=== PATIENT | female | born 1955 | race Caucasian/White ===

== ENCOUNTER 2016-05-14 16:01 | Emergency (ER) | payer BC ==
[2015-08-29 09:20] VITALS: BMI 17.4
[~2016-05-14 16:01] MED LIST: ASPIRIN EC81 M1 PO; CYMBALTA60 MG PO; FISH OIL 1,0001 CA1 PO; HYDROCODON-ACE1 EAC9 PO; HYDROCODONE-APA1 TAB PO; MULTI-DAY VITAM1 TAB PO; PLAVIX75 MG PO; REQUIP0.5 MG PO; ZOFRAN4 MG PO
[2016-05-14 18:00] LABS: BASOPHILS 0.1 % (0.0-2.0); EOSINOPHILS 0 % (0-7); HEMOGLOBIN 10.3 g/dL (12-16); IMMATURE GRANULOCYTES 0.3 % (0-5); LYMPHOCYTES 9.1 % (15-50); MCH 32.8 pg (26.0-34.0); MCHC 33.2 g/dL (31.0-37.0); MCV 98.7 fL (80.0-100.0); MEAN PLATELET VOLUME 10.4 fL (7.4-10.4); NEUTROPHILS 85.5 % (40-80); RBC 3.14 10x6/uL (4.00-5.40); RDW 12.5 % (11.5-14.5); WBC 17.9 10x3/uL (4.8-10.8)
[2016-05-14 18:22] LABS: ALBUMIN 3.7 g/dL (3.4-5.0); ANION GAP 13.1 mmol/L (8-16); BILIRUBIN - TOTAL 0.48 mg/dL (0.2-1.3); CALCIUM 8.9 mg/dL (8.5-10.1); CARBON DIOXIDE 28.6 mmol/L (21.0-32.0); POTASSIUM - SERUM 3.7 mmol/L (3.5-5.1); PROTEIN - SERUM 6.8 g/dL (6.4-8.2)
[2016-05-14 18:32] LABS: PLATELET COUNT 208 10x3/uL (130-400)
[2016-05-14 18:39] LABS: INR 1.06 (0.85-1.17); PROTIME 13.6 SECONDS (11.6-15.0)
== END 2016-05-14 20:00 | disposition home or self-care (01) ==
LOC: D.ER 16:01
PROVIDERS: Nurse Practitioner Family
DX: S22.32XA Fracture of one rib, left side, initial encounter for closed fracture (principal); W19.XXXA Unspecified fall, initial encounter; Y93.89 Activity, other specified; Y92.019 Unspecified place in single-family (private) house as the place of occurrence of the external cause; M79.7 Fibromyalgia

== ENCOUNTER 2016-05-18 03:07 | Inpatient (IN) | payer BC ==
[~2016-05-18] VITALS: Ht 162.6 cm; Wt 47.6 kg
[2016-05-18 03:50] LABS: BASOPHILS 0.1 % (0.0-2.0); EOSINOPHILS 0.4 % (0-7); IMMATURE GRANULOCYTES 0.2 % (0-5); LYMPHOCYTES 9.6 % (15-50); MCH 33.1 pg (26.0-34.0); MCHC 32.6 g/dL (31.0-37.0); MCV 101.7 fL (80.0-100.0); MONOCYTES 6.6 % (2-11); NEUTROPHILS 83.1 % (40-80); PLATELET COUNT 188 10x3/uL (130-400); WBC 13.4 10x3/uL (4.8-10.8)
[2016-05-18 03:59] LABS: APTT 20.9 SECONDS (22.8-39.4); INR 1.02 (0.85-1.17); PROTIME 13.2 SECONDS (11.6-15.0)
[2016-05-18 04:05] LABS: ALBUMIN 3.1 g/dL (3.4-5.0); ALKALINE PHOSPHATASE 70 U/L (46-116); ALT (SGPT) 16 U/L (10-68); AMYLASE - SERUM 32 U/L (25-115); CALC OSMOLALITY 286 mosm/kg (275-300); CALCIUM 8.4 mg/dL (8.5-10.1); CHLORIDE - SERUM 107 mmol/L (98-107); CREATININE - SERUM 0.8 mg/dL (0.6-1.3); GLUCOSE 169 mg/dL (74-106); LIPASE 91 U/L (73-393); PROTEIN - SERUM 6.3 g/dL (6.4-8.2); SODIUM 143 mmol/L (136-145); UREA NITROGEN 8 mg/dL (7-18); eGFR NON AFRICAN AMERICAN 77 mL/min (90-120)
[2016-05-18 04:19] LABS: HEMATOCRIT 18.4 % (36.0-48.0); RBC 1.81 10x6/uL (4.00-5.40)
--- NOTE | 2016-05-18 07:53 | NUR ---
RECEIVED PATIENT TO HER ROOM. INITIATED THE THIRD UNIT OF PRBC INFUSION. SHE IS ALERT AND ORIENTED, ABLE TO GIVE HER HISTORY. SHE STATES THAT SHE HAS BEEN "PASSING OUT" AND REPORTS ORTHOSTATIC BLOOD PRESSURES LAST WEDNESDAY IN THE ER. SHE DOES HAVE AN OCCASIONAL COUGH AND REPORTS RIB PAIN AT THST TIME. SHE ALSO REPORTS THAT HER ABDOMEN FEELS BLOATED AND SUSPECTS THAT THIS MAY BE FROM HER INJURY TO THE SPLEEN. SHE UNDERSTANDS THAT SHE IS NPO AND KNOWS HOW TO USE THE CALL LIGHT. HER PURSE IS AT HER SIDE. SHE DENIES NEEDS AT THIS TIME. MONITORING CLOSELY
--- NOTE | 2016-05-18 08:05 | NUR ---
PATIENT REMAINS WITHOUT EVIDENCE OF ADVERSE REACTION R/T THE PRBC INFUSION. MONITORING CLOSELY.
[2016-05-18 10:01] VITALS: BP 132/70; BMI 18.0
--- NOTE | 2016-05-18 10:19 | NUR ---
PATIENT RESTING IN HER BED, HOB UP 30 DEGREES. SHE STATES THAT HER LEFT RIB PAIN IS AN 8 ON THE PAIN SCALE. SHE HAS BEEN GIVEN A NORCO. REVIEWED HER ALLERGIES AND ASSESSMENT COMPLETED. HER LUNGS ARE CLEAR WITH THE RIGHT LL DIMINISHED. RRR. BOWEL SOUNDS ARE ACTIVE. ABDOMEN IS FIRM AND NONTENDER. HER LEGS ARE EQUALLY WARM, PEDAL PULSES ARE PALPABLE.
[2016-05-18 10:41] LABS: HEMATOCRIT 27.7 % (36.0-48.0); HEMOGLOBIN 9.4 g/dL (12-16)
--- NOTE | 2016-05-18 10:47 | NUR ---
PATIENT'S LEFT AC SL FLUSHED, REMOVED BLOOD TUBING AND HUNG NS TO INFUSE AT 125CC PER HOUR. PATIENT STATES THAT HER PAIN IS MUCH BETTER NOW AND REQUESTS THAT I COMMERCIAL SALES CONSULTANT THE LIGHT AND CLOSE HER DOOR, SHE WANTS TO SLEEP NOW. SHE HAS BEEN AWAKE SINCE FALLING ONTO THE FLOOR AT 2AM.
[2016-05-18] MEDS ORDERED: PROZAC10 MG PO (10:55)
[2016-05-18] MEDS ORDERED: REMERON15 MG PO (10:55)
[2016-05-18 12:32] VITALS: BP 114/61
[2016-05-18 13:27] VITALS: Ht 162.6 cm; Wt 47.6 kg
[2016-05-18 14:05] LABS: HEMATOCRIT 27.5 % (36.0-48.0); HEMOGLOBIN 9.4 g/dL (12-16)
[2016-05-18 16:08] VITALS: BP 115/62
[2016-05-18 16:08] LABS: HEMATOCRIT 27.6 % (36.0-48.0); HEMOGLOBIN 9.3 g/dL (12-16)
[2016-05-18 19:00] VITALS: BP 144/69
--- NOTE | 2016-05-18 19:07 | NUR ---
PATIENT HAS BEEN UP AMBULATING AROUND HER ROOM. DAUGHTER AT THE [facility]. DENIES NEEDS AT THIS TIME.
--- NOTE | 2016-05-18 19:20 | NUR ---
RECIEVED SHIFT REPORT. PT IS LYING IN BED. ALERT AND ORIENTED AND ABLE TO VERBALIZE NEEDS. IV'S TO BILATERAL A/C'S PATENT AND SALINE LOC AT THIS TIME. PT IS AMBULATORY BUT WAS INSTRUCTED TO CALL FOR ANY ASSISTANCE NEEDED. PT STATES PAIN IS 8/10. NO NEEDS ARE VERBALIZED AT THIS TIME. WILL CONTINUE TO MONITOR. SIDE RAILS ARE UP X 2. BED IS IN LOWEST POSITION. CALL LIGHT IS WITHIN REACH.
--- NOTE | 2016-05-18 20:19 | NUR ---
SHIFT ASSESSMENT COMPLETED. NIGHT MEDS GIVEN WITH NO PROBLEMS. PT C/O PAIN 11/19. ADMINISTERED PRESCRIBED PRN NORCO PER ORDER. DENIES FURTHER NEEDS. WILL MONITOR. SIDE RAILS X 2. BED LOW. CALL LIGHT IN REACH.
[2016-05-19 04:57] LABS: BASOPHILS 0.1 % (0.0-2.0); EOSINOPHILS 3.2 % (0-7); HEMATOCRIT 26.8 % (36.0-48.0); HEMOGLOBIN 9.1 g/dL (12-16); IMMATURE GRANULOCYTES 0.1 % (0-5); LYMPHOCYTES 25.7 % (15-50); MCH 30.8 pg (26.0-34.0); MEAN PLATELET VOLUME 9.8 fL (7.4-10.4); MONOCYTES 10.2 % (2-11); NEUTROPHILS 60.7 % (40-80); RDW 17.8 % (11.5-14.5)
[2016-05-19 04:58] LABS: MCV 90.8 fL (80.0-100.0); PLATELET COUNT 123 10x3/uL (130-400); RBC 2.95 10x6/uL (4.00-5.40)
--- NOTE | 2016-05-19 08:04 | NUR ---
PATIENT AWAKE, ALERT/ORIENT X4. LAC IS SALINE LOCKED. RAC IS SALINE LOCKED. VOICES NO NEEDS AT THIS TIME. CALL LIGHT WITHIN REACH
[2016-05-19 08:33] VITALS: BP 156/84
--- NOTE | 2016-05-19 10:41 | NUR ---
PATIENT RESTING WELL. STATES NO FURTHER PAIN SINCE PRN NORCO GIVEN.
--- NOTE | 2016-05-19 11:30 | NUR ---
AWAKE AND ALERT AT THIS TIME. IV PATENT AND SALINE LOCKED. PROVIDED PT WITH COLA, CUP OF ICE, AND SUMAN CRACKERS.
[2016-05-19 12:30] VITALS: BP 155/66
--- NOTE | 2016-05-19 13:30 | NUR ---
PRN NORCO GIVEN FOR PAIN ON LEFT SIDE OF HER TORSO.
--- NOTE | 2016-05-19 14:05 | NUR ---
DISCHARGE ORDERS WRITTEN FOR THIS PATIENT TO BE DISCHARGED TO HOME. SALINE LOCK PULLED FROM LEFT AC RIGHT AC WITHOUT DIFFICULTY.
[2016-05-19 16:01] VITALS: BP 131/68
--- NOTE | 2016-05-19 16:16 | NUR ---
DISCHARGE INSTRUCTIONS GONE OVER WITH PATIENT. MEDICATIONS PATIENT DOES NOT HAVE AT HOME CALLED INTO PHARMACY. PATIENT STATES HER DAUGHTER WILL PICK HER UP AFTER WORK AT AROUND FIVE OCLOCK
--- NOTE | 2016-05-19 17:59 | NUR ---
DAUGHTER HERE TO TAKE PATIENT HOME. PATIENT TAKEN OUT IN WHEELCHAIR BY STAFF
--- NOTE | 2016-06-11 13:01 | DS ---
PATIENT:MICHAEL SINGH :57 MEDICAL RECORD: [id number] DISCHARGE SUMMARY ADMISSION DATE: 05/18/16 DISCHARGE DATE: 05/19/16 DATE OF ADMISSION: 05/18/2016 DATE OF DISCHARGE: 05/19/2016 ADMISSION DIAGNOSES: 1. Acute splenic injury. 2. Acute blood loss anemia. 3. Peripheral vascular disease, on chronic Plavix. DISCHARGE DIAGNOSES: 1. Acute splenic injury. 2. Acute blood loss anemia. 3. Peripheral vascular disease, on chronic Plavix. PROCEDURE: None. CONSULTATIONS: None. REPORT OF HOSPITALIZATION: The patient was admitted to the hospital with a finding of acute blood loss anemia and on the CT scan, there was evidence of a large splenic laceration. Initial hemoglobin on admission was 6. The patient was given 3 units of blood and her blood counts came up appropriately to 9.4. The patient states she fell on her left side 4 days prior to admission while she was walking her dog. She said she fell onto a trees limb. She was doing fine until she passed out the night prior to admission with that time, was taken to the Emergency Room. She was admitted to the hospital and her Plavix was held and she was followed with serial H&Hs. She showed no sign of active bleeding and the following morning, she was set up for discharge home. DISCHARGE INSTRUCTIONS: Return to clinic or call if any questions or concerns, fevers, chills, nausea or vomiting. ACTIVITIES: As tolerated. FOLLOWUP: In clinic with me p.r.n. DISCHARGE MEDICATIONS: Resume all home medications. TRANSINT:[id number] Voice Confirmation ID: [id number] DOCUMENT ID: [id number] KATHY IVERSON MD at 1301 CC: [id number] DICTATION DATE: 06/09/16 1420 PAYROLL OFFICER: 06/10/16 0419 DIS IN 05/19/16 [place] [address]
== END 2016-05-19 17:59 | disposition home or self-care (01) | DRG 815 ==
LOC: D.ER 03:07 → D.MS 06:11
PROVIDERS: Emergency Medicine; ADMIT Surgery
DX: S36.032A Major laceration of spleen, initial encounter (principal); D62 Acute posthemorrhagic anemia; W18.39XA Other fall on same level, initial encounter; I73.9 Peripheral vascular disease, unspecified; F17.200 Nicotine dependence, unspecified, uncomplicated

== ENCOUNTER → 2017-03-17 14:48 | Outpatient (CLI) | payer MEDICAID ==
[2016-05-18 13:27] VITALS: BMI 18.0
[~2017-03-17 14:48] MED LIST changes: +PROZAC10 MG PO; +REMERON15 MG PO
== END | disposition home or self-care (01) ==
LOC: D.RAD 14:48
DX: M25.561 Pain in right knee (principal)

== ENCOUNTER → 2017-04-08 11:15 | Outpatient (CLI) | payer MEDICAID ==
[2016-05-18 13:27] VITALS: BMI 18.0
== END | disposition home or self-care (01) ==
LOC: D.RAD 11:15
DX: M25.571 Pain in right ankle and joints of right foot (principal); M79.604 Pain in right leg

== ENCOUNTER → 2017-08-12 10:40 | Outpatient (CLI) | payer MEDICAID ==
[2016-05-18 13:27] VITALS: BMI 18.0
== END | disposition home or self-care (01) ==
LOC: D.MRI 08-09 11:00
DX: M79.671 Pain in right foot (principal); I10 Essential (primary) hypertension

== ENCOUNTER 2017-10-30 15:19 | Emergency (ER) | payer MEDICAID ==
[~2017-10-30] VITALS: Ht 162.6 cm; Wt 52.3 kg
[2017-10-30 15:44] VITALS: Ht 162.6 cm; Wt 52.3 kg
[2017-10-30] MEDS ORDERED: LISINOPRIL10 MG PO (15:46)
[2017-10-30] MEDS ORDERED: ZPAK PO (16:45)
[2017-10-30] MEDS ORDERED: MEDROL DOSE PACK4 MG PO (16:45)
[2017-10-30 18:05] VITALS: BP 179/95
== END 2017-10-30 17:59 | disposition home or self-care (01) ==
LOC: D.ER 15:19
DX: H66.91 Otitis media, unspecified, right ear (principal); H92.01 Otalgia, right ear; R51 Headache; I10 Essential (primary) hypertension; F17.200 Nicotine dependence, unspecified, uncomplicated

== ENCOUNTER 2018-01-14 10:52 | Inpatient (IN) | payer MEDICAID ==
[~2018-01-14] VITALS: Ht 162.6 cm; Wt 56.8 kg
--- NOTE | ~2018-01-14 | OP ---
PATIENT NAME: MICHAEL SINGH MEDICAL RECORD: [id number] :57 LOCATION:D.M2 D.2130 ADMISSION DATE:01/14/18 SURGEON: VERONA SINGLETARY MD DATE OF OPERATION: 01/16/2018 PROCEDURES: Left heart catheterization, selective coronary angiography, right femoral artery approach. CATHETERS: A 5-Italian sheath, 5/4 left and right Marly, 5/4 pig. The procedure was well tolerated. The patient returned to the [place]. Sheath was removed. PTCA and stent of the diagonal. FINDINGS: Left ventriculography mild anterior apical hypokinesis. Overall LV function, however, is preserved at 50% and better. CORONARY ANATOMY: LEFT MAIN: Left main is free of disease. LAD: Had as a parallel diagonal, D1 itself is much larger than the LAD with 89% ostial diffuse stenosis. CIRCUMFLEX: Free disease. RIGHT CORONARY ARTERY: Dominant artery, gives rise to PDA, free of disease. IMPRESSION: Pry-FC-axfjyhxmi myocardial infarction secondary to diagonal disease. PLAN: Intervention momentarily. DESCRIPTION OF PROCEDURE: A 5-Italian sheath was exchanged for a 6-Italian sheath. EBU 3.0 guiding catheter provided good catheter support, followed 300 cm Whisper wire was placed across occluded diagonal pre-deployment. Balloon was a 2.5 x 15 mm [place]. The stenting was undertaken with a 3.0 x 15 mm [place] drug-eluting stent at 14 atmospheres. Final angiography shows excellent resolution with 89% stenosis, no significant residual. MARISSA flow was 3 throughout the procedure. Heparin used in lab. Sheath closed with ExoSeal device. The patient was previously on Plavix. TRANSINT:[id number] Voice Confirmation ID: [id number] DOCUMENT ID: [id number] VERONA SINGLETARY MD at 0829 CC: [id number] DICTATION DATE: 01/16/18 0938 FIREFIGHTER TYPE ONE: 01/16/18 1218 DIS IN 01/16/[address] [id number]
--- NOTE | ~2018-01-14 | HP ---
PATIENT: MICHAEL SINGH MEDICAL RECORD: [id number] ACCOUNT: [id number] LOCATION:[address] : 57 ADMISSION DATE: 01/14/18 PCP: JOSEFINA BONE DO HISTORY AND PHYSICAL EXAMINATION HISTORY OF PRESENT ILLNESS: The patient admitted through the Emergency Room with 2 days of progressive shortness of breath, syncopal or near syncopal episode prior to arrival. Admits to chest pressure. Denies pain. Has had upper respiratory symptoms for the past several weeks. Denies any fever or chills for the last 2 days. PAST MEDICAL HISTORY: Significant for peripheral vascular disease with stents to the lower extremity, history of aortic aneurysm and repair, long-term smoker - presently pack a day, history of depression, allergies, and restless leg. ALLERGIES: SULFA DRUGS, ASPIRIN, CODEINE. CURRENT MEDICATIONS: Plavix 75 mg daily, lisinopril 10 mg daily, Prozac 10 mg daily, fish oil, [place] p.r.n. pain, ropinirole 2 mg p.o. at bedtime, and multivitamin. REVIEW OF SYSTEMS: GENERAL: No reported change in weight or appetite. HEENT: No cephalalgia, visual changes, tinnitus, epistaxis, or dysphagia. CARDIOVASCULAR: Shortness of breath, chest pressure, fatigue for the past 2 days, progressively worse with unclear syncopal or near syncopal episode just prior to arrival. PULMONARY: Denies hemoptysis, denies night sweats. Admits to shortness of breath with exertion. GASTROINTESTINAL: Denies hematemesis, hematochezia or melena. GENITOURINARY: Denies dysuria. Does admit to frequency. MUSCULOSKELETAL: No acute changes. ENDOCRINE: Denies polyuria, polydipsia, or polyphagia. PHYSICAL EXAMINATION: VITAL SIGNS: Temp 98.4, blood pressure 104/61, heart rate 94, respirations 16, O2 sats 96% on room air. GENERAL: Alert and oriented, no present distress. HEENT: Normocephalic, atraumatic. Eyes: Pupils are equally round and reactive to light and accommodation. Extraocular muscles intact. Conjunctivae not injected. Ears: Canals patent, TMs are intact. Nose: Nares patent without drainage. Throat: No erythema, no exudates. NECK: Supple. No lymphadenopathy, no JVD. HEART: Regular rate and rhythm. No S3, S4, no rub. LUNGS: Clear to auscultation bilaterally. Breathing is nonlabored. ABDOMEN: Soft, nontender. Bowel sounds all 4 quadrants. EXTREMITIES: Present times 4. No edema. NEUROLOGIC: Intact. SKIN: Warm and dry. No rash. LABORATORY DATA: Urinalysis: Yellow, hazy, trace protein, 1+ blood, moderate bacteria. CBC: White count 8.5, hemoglobin 14, hematocrit 40.5, platelets 246. HISTORY AND PHYSICAL [id number] MICHAEL SINGH PT is 12.9, INR is 1.01. D-dimer was elevated at 0.77. CTA chest PE protocol was negative for any acute process. Negative for PE. Chemistry shows sodium of 136, potassium 2.7 and corrected in the ER, chloride 98, bicarbonate 20.8, BUN 8, creatinine 1.3. Lactic acid was elevated at 7.0, calcium 9.1, AST 33, ALT 28, alkaline phosphatase 105. CK 101. CK-MB elevated at 6.8. Troponin 0.063. ProBNP 4501. EKG shows sinus rhythm, nonspecific ST changes, prolonged QT, ventricular rate 90, abnormal EKG. ASSESSMENT AND PLAN: The patient was admitted with: 1. Dyspnea on exertion, abnormal EKG, angina, elevated cardiac enzymes. Cardiology consulted. 2. Hypokalemia, monitor, electrolyte protocol. Supplement as needed. 3. Urinary tract infection, Rocephin 1 gram daily. 4. Anxiety and depression, resume home medications. 5. Peripheral vascular disease, continue Plavix. Supportive care. Cardiac catheterization anticipated in a.m. TRANSINT:[id number] Voice Confirmation ID: [id number] DOCUMENT ID: [id number] HELEN ROLLINS DO at 1030 CC: [id number] DICTATION DATE: 01/15/181116 COUPON CLERK: 01/15/[id number] ADM IN [facility] [address] [place] [address]
--- NOTE | ~2018-01-14 | CN ---
PATIENT NAME:MICHAEL SINGH MEDICAL RECORD: [id number] : 57 LOCATION:D.M2 D.2130 ADMIT DATE: 01/14/18 ACCOUNT: [id number] CONSULTING PHYSICIAN: VERONA SINGLETARY MD REFERRING PHYSICIAN: HELEN ROLLINS DO DATE OF CONSULTATION: 01/15/2018 HISTORY OF PRESENT ILLNESS: A 62-year-old female with a history of peripheral vascular disease, status post intervention via Dr. Hoyt. She has a history of chronic obstructive pulmonary disease with ongoing tobacco use, admitted with a near syncopal episode, was found to be acidotic, with elevated lactic acid, that is improving, also has a history of upper respiratory tract infection 2 weeks ago as well as current UTI, found to have elevated BNP and troponin, has noticed marked dyspnea as of late but no kemi orthopnea, PND. Does try to walk, trying to walk her dogs. We were asked to see her secondary to cardiovascular status. PAST MEDICAL HISTORY: 1. History of peripheral vascular disease. 2. Obstructive pulmonary disease. 3. Hypertension. ALLERGIES: SULFA, CODEINE, AND ASPIRIN. MEDICATIONS: Include Plavix 75 every day, lisinopril 10 every day, Prozac 10 every day, Remeron 15 at bedtime, Requip 2 at bedtime. SOCIAL HISTORY: Smokes about a pack a day. Usually takes care of all her ADLs. Does walk her dogs. REVIEW OF SYSTEMS: The patient reports easy bruising but reports no swollen glands. The patient reports no fever, no night sweats, no significant weight gain, no significant weight loss. No significant exercise tolerance. The patient reports no dry eyes, no irritation, no vision change. Patient reports no difficulty hearing and no ear pain. Patient reports no frequent nose bleeds or nose and sinus problems. Patient reports on arm pain on exertion. No shortness of breath while lying down. No history of heart murmur. Patient reports no cough, no wheezing or coughing up blood. Patient reports no abdominal pain, no vomiting. Normal appetite. No diarrhea and not vomiting blood. No nausea and no constipation. Patient reports no incontinence. No difficulty urinating. No hematuria. No increased frequency. Patient reports no muscle aches. No weakness, no arthralgias, no back pain. No swelling of the extremities. Patient reports no abnormal mole, no jaundice, no rashes. Reports no loss of consciousness. No weakness and no numbness. No seizures, dizziness, or headaches. The patient reports no depression, no sleep disturbance, feeling safe in a relationship and no alcohol abuse. Patient reports on fatigue. Reports no runny nose or sinus pressure. No itching, no hives, and no frequent sneezing. PHYSICAL EXAMINATION: GENERAL: Pleasant female, appears stated age. VITAL SIGNS: Blood pressure 104/61, pulse 94 and regular. HEENT: Normocephalic, atraumatic. NECK: No JVD or bruit. HEART: Regular, I-II/ ejection murmur. LUNGS: Prolonged respiratory phase with no active wheezing. CONSULT REPORT [id number] FRANCISCOMICHAEL ABDOMEN: Soft, nontender. EXTREMITIES: Pulses are decreased, 1+. There is no edema. NEUROLOGIC: Grossly intact. DIAGNOSTIC DATA: ECG shows anterior T-wave inversion. IMPRESSION: ECG changes, elevated cardiac enzymes in the face of recent infection and lactic acidosis, difficult to assess if this is a true demand type ischemia or fixed obstructive disease. PLAN: We will plan for diagnostic angiography after hydration and improvement of the electrolytes today TRANSINT:[id number] Voice Confirmation ID: [id number] DOCUMENT ID: [id number] VERONA SINGLETARY MD at 1023 CC: [id number] DICTATION DATE: 01/15/18 1027 COMMUNICATION EQUIPMENT MECHANIC: 01/15/18 1305 ADM IN [place] [id number] [place] [address]
--- NOTE | ~2018-01-14 | EC ---
PATIENT:MICHAEL SINGH DATE OF SERVICE: 01/14/18 SEX: F MEDICAL RECORD: [id number] DATE OF : 57 LOCATION:D.M2 D.213 AGE OF PATIENT: 62 ADMISSION DATE: 01/14/18 REFERRING PHYSICIAN: INTERPRETING PHYSICIAN: VERONA SINGLETARY MD ECHOCARDIOGRAM REPORT ECHO CHARGES 4 ECHO COMPLETE Date: 01/15/18 CLINICAL DIAGNOSIS: ACS ECHOCARDIOGRAPHIC MEASUREMENTS (adult normal given) AC root (d.<3.7cm) 3.0 cm LV Septum d (<1.2 cm> 1.3 cm Valve Excursion 1.8 cm LV Septum (systole) 1.9 cm Left Atria (s.<4.0cm> 3.0 cm LVPW d(<1.2cm) 1.2 cm RV (d.<2.3cm) 1.8 cm LVPW (sytole) 1.9 cm LV diastole(<5.6CM) 3.9 cm MV E-F(>70mm/sec) cm LV systole 2.2 cm LVOT Diameter 1.8 cm MV exc.(>10mm) cm Est.ejection fraction (50-75%) % DOPPLER: LVIT cm/sec A 70.0 cm/sec E 91.0 cm/sec LA cm/sec RVSP 34.0 mmHg LVOT 111 cm/sec AOP1/2T m/s Asc. Ao 152 cm/sec RVOT 85.0 cm/sec RA cm/sec PA 75.0 cm/sec AV Gradient Peak 9.2 mmHg AV Mean 4.9 mmHg AV Area 2.1 cm MV Gradient Peak 3.6 mmHg MV Mean 1.5 mmHg MV Area cm COMMENTS: Brine Well Operator: 1 ISIDRO YANCEYOE Ethyl Blender: 3 Dr. Calzada TAPE# PACS Pericardial Effusion N DATE OF SERVICE: Adequate 2D, color flow, spectral Doppler and M-mode. LVH is present. LV internal dimension is normal. Wall motion normal. EF 65%. Aortic valve is tricuspid. No evidence of stenosis on Doppler interrogation. Left atrium is normal at 3.0 cm. Mitral valve shows no prolapse. Mild MR. Right-sided chambers normal. [id number] TR with color flow imaging. TRANSINT:[id number] Voice Confirmation ID: [id number] DOCUMENT ID: [id number] ECHOCARDIOGRAM REPORT [id number] MICHAEL SINGH GREGORY A MD at 1023 CC: [id number] DICTATION DATE: 01/15/18 1644 POLITICAL SCIENCE PROFESSOR: 01/16/18 0043 ADM IN [facility] [address] [place] [id number]
--- NOTE | ~2018-01-14 | HEMODYNAMI ---
PATIENT:MICHAEL SINGH MEDICAL RECORD: [id number] : 57 [facility] ADMISSION DATE: 01/14/18 Generatedon:01/16/20189:34 Patient name: MICHAEL SINGH Patient #: [id number] SSN: : 1955 Date of study: 01/16/2018 Page: Of Hemodynamic Procedure Report Patient Data Patient Demographics Procedure consent was obtained First Name: MICHAEL Gender: Female Last Name: FRANCISCO : 1955 Middle Initial: LUISANA Age: 62 year(s) Patient #: [id number] Race: Unknown Additional ID: [id number] Contact details [address]: [address] [place] [address] State: [place] City: [place] Zip code: [address] Admission Admission Data Admission Date: 01/14/2018 Admission Time: 17:57 Room #: D.2130 Procedure Procedure Types Cath Procedure Diagnostic Procedure LHC LHC w/Coronaries Sedation Charges Moderate Sedation up to 15 minutes PCI Procedure Coronary Stent Coronary Stent Initial Procedure Description Procedure Date Procedure Date: 01/16/2018 Procedure Start Time: 9:14 Procedure End Time: 9:32 Procedure Staff Name Function Liam Merrill MD Performing Physician Aurora Israel RT Monitor Mami Holley RN Nurse Alyssa Hemphill RN Nurse Dorian Long RT Scrub Procedure Data Cath Procedure Fluoroscopy Diagnostic fluoroscopy Total fluoroscopy Time: 3.7 time: 3.7 min min Diagnostic fluoroscopy Total fluoroscopy dose: 297 dose: 297 mGy mGy Contrast Material Contrast Material Type Amount (ml) Isovue 300 92 Entry Location Entry Primary Successful Side Size Upsize Upsize Entry Closure Succes sful Closure Location (Fr) 1 (Fr) 2 (Fr) Remarks Device Remarks Femoral Right 5 Fr 6 Fr Exoseal artery Short Estimated blood loss: 5 ml Diagnostic catheters Device Type Used For End Catheter Placement MULTIPACK JL 4.0 5Fr Left Coronary catheter Angiography MULTIPACK 3DRC 5Fr Right Coronary catheter Angiography MULTIPACK Pigtail 5 Fr LV Angiography catheter Procedure Complications No complications Procedure Medications Medication Administration Route Dosage 0.9% NaCl I.V. 100 ml/hr Oxygen etCO2 Nasal cannula 2 l/min Lidocaine 2% added to field 20 Heparin Flush Bag added to field 2 bags (1000units/500ml NS) Versed I.V. 2 mg Fentanyl I.V. 100 mcg Versed I.V. 2 mg Fentanyl I.V. 100 mcg Heparin Bolus I.V. 4000 units Lopressor I.V. 5 mg Hemodynamics Rest Heart Rate: 100 (bpm) Pressure Samples Time Site Value (mmHg) Purpose Heart Use Rate(bpm) 9:19 LV 125/4,13 Snapshot 102 Gradients Valve Time Site Site Mean SEP/DFP Peak To Heart Use 1 2 (mmHg) (sec/min) Peak Rate (mmHg) (bpm) Aortic 9:19 LV AO 93 Snapshots Pre Cath Intra NCS Post Cath Vital Signs Time Heart Resp SPO2 etCO2 NIBP (mmHg) Rhythm Pain Sedation Rate (ipm) (%) (mmHg) Status Level (bpm) 8:54:13 99 11 100 30 151/98(126) NSR 0 (11) 10(A) , No pain 8:58:29 94 22 100 22.5 141/86(116) NSR 0 (11) 10(A) , No pain 9:02:37 94 20 97 33 118/74(93) NSR 0 (11) 10(A) , No pain 9:06:45 94 14 97 36.8 117/72(95) NSR 0 (11) 10(A) , No pain 9:10:53 92 18 97 37.6 118/72(91) NSR 0 (11) 10(A) , No pain 9:15:03 92 13 96 41.3 115/69(92) NSR 0 (11) 10(A) , No pain 9:19:54 108 19 96 29.3 162/101(119) NSR 0 (11) 10(A) , No pain 9:22:54 104 16 97 38.3 161/101(125) NSR 0 (11) 10(A) , No pain 9:28:07 89 13 98 34.5 134/77(98) NSR 0 (11) 10(A) , No pain 9:32:17 87 17 96 23.3 125/109(121) NSR 0 (11) 10(A) , No pain Medications Time Medication Route Dose Verified Delivered Reason Notes Effectiveness by by 8:49:51 0.9% NaCl I.V. 100 Liam Alyssa used for ml/hr [facility] procedure MD SUAREZ 8:50:01 Oxygen etCO2 2 Liam Alyssa used for Nasal l/min [facility] cannula MD SUAREZ 8:50:08 Lidocaine 2% added 20ml Liam Wheeler used for to vial [facility] procedure field MD LUJAN 8:50:15 Heparin Flush added 2 Liam Liam used for Bag to bags [facility] procedure (1000units/500ml field MD LUJAN NS) 9:15:15 Versed I.V. 2 mg Liam Alyssa for sedation [facility] Hemph[facility] MD, RN 9:15:22 Fentanyl I.V. 100 Liam Alyssa for sedation mcg [facility] Hemph[facility] MD, RN 9:20:54 Versed I.V. 2 mg Liam Aylssa for sedation [facility] Hemph[facility] MD, RN 9:21:00 Fentanyl I.V. 100 Liam Alyssa for sedation mcg [facility] Hemph[facility] MD RN 9:21:10 Heparin Bolus I.V. 4000 Liam Alyssa for units [facility] Hem[facility] anticoagulation RN 9:23:25 Lopressor I.V. 5 mg Liam Alyssa Per physician [facility] MD director database Log Time Note 8:30:28 Dorian Long RT(R) sent for patient. Start room use. 8:36:30 Time tracking: Regular hours (M-F 7:00 - 5:00) 8:36:34 Plan of Care:Hemodynamics will remain stable., Cardiac rhythm will remain stable., Comfort level will be maintained., Respiratory function will remain adequate., Patient/ family verbilizes understanding of procedure., Procedure tolerated without complication., Recovers from procedure without complications.. 8:49:51 0.9% NaCl 100 ml/hr I.V. was administered by Alyssa Hemphill RN; used for procedure; 8:50:01 Oxygen 2 l/min etCO2 Nasal cannula was administered by Alyssa Hemphill RN; used for procedure; 8:50:08 Lidocaine 2% 20ml vial added to field was administered by Liam Merrill MD; used for procedure; 8:50:15 Heparin Flush Bag (1000units/500ml FIDELIA) 2 bags added to field was administered by Liam Merrill MD; used for procedure; 8:53:13 Vital chart was started 8:55:54 Patient received from Med II to CCL 1 Alert and oriented. Tansferred to table in Supine position. 8:55:56 Warm blankets applied, and sagar hugger turned on for patient comfort. 8:55:56 Correct patient and procedure confirmed by team. 8:55:58 Signed procedure consent form obtained from patient. 8:55:59 ECG and BP/O2 sat monitors applied to patient. 8:56:04 Baseline sample Acquired. 8:56:11 Rhythm: sinus tachycardia 8:56:13 Full Disclosure recording started 8:56:17 H&P Date Dictated: 01/16/2018 New H&P dictated by physician.. 8:56:23 Pre-procedure instructions explained to patient. 8:56:24 Pre-op teaching completed and patient verbalized understanding. 8:56:31 Family in waiting room. 8:56:32 Patient NPO since Midnight. 8:56:41 Is the patient allergic to Iodine/contrast media? No. 8:56:43 Was the patient premedicated? No 8:56:45 Is patient on blood thinner?Yes 8:56:49 ACC The patient was administered the following blood thiners within the last 24 hours: ACCPlavix 8:56:59 Patient diabetic? No. 8:57:02 Previous problem with sedation/anesthesia? No ? 8:57:18 Snore? Yes 8:57:20 Sleep apnea? No 8:57:21 Deviated septum? No 8:57:22 Opens mouth fully? Yes 8:57:23 Sticks out tongue? Yes 8:57:27 Airway obstruction? No ? 8:57:33 Dentures? Yes in tight 8:57:55 Pre procedure: right dorsailis pedis pulse 1+ Palpable, but thready & weak; easily obliterated 8:57:57 Pre procedure: left dorsailis pedis pulse 1+ Palpable, but thready & weak; easily obliterated 8:58:01 Patient pain scale 0/10 ?. 8:58:09 IV patent on arrival in left forearm with 0.9% NaCl at KVO. 8:58:12 Lab results completed and on chart. 9:01:06 Right groin area was prepped with chlora-prep and draped in sterile fashion 9:01:07 Alarms reviewed by RYann N. 9::07 Sharps counted by scrub and verified by R.N. 9:07:59 Physician paged 9:14:29 Physician arrived 9:14:30 --------ALL STOP TIME OUT------ 9:14:30 Final Timeout: patient, procedure, and site verified with staff and physician. All members of the team are in agreement. 9:14:32 Right groin site verified by team. 9:14:34 Physical assessment completed. ASA score P 2 - A patient with mild systemic disease as per Liam Merrill MD. 9:14:38 Sedation plan: IV Moderate Sedation Medication:Versed, Fentanyl 9:14:43 Procedure started. 9:14:46 Local anesthetic to right femoral artery with Lidocaine 2% by Liam Merrill MD.INITIAL ACCESS ONLY 9:14:49 Use device set Femoral Dx 9:14:50 ACIST Syringe (30148) opened to sterile field. 9:14:50 Bag Decanter (2002S) opened to sterile field. 9:14:50 Medline Cath Pack ([id number]) opened to sterile field. 9:14:51 DIAGNOSTIC WIRE .035 260cm J wire (770088) opened to sterile field. 9:14:52 ACIST Hand Control (25698) opened to sterile field. 9:14:53 ACIST Manifold (00740) opened to sterile field. 9:14:53 DIAGNOSTIC Multipack 5Fr catheter set ([id number]) opened to sterile field. 9:14:54 Tegaderm 4 x 4 (1626W) opened to sterile field. 9:14:55 SHEATH Prelude 5Fr 0.035 (BFU-0S-70-035) opened to sterile field. 9:15:15 Versed 2 mg I.V. was administered by Alyssa Hemphill RN; for sedation; 9:15:22 Fentanyl 100 mcg I.V. was administered by Alyssa Hemphill RN; for sedation; 9:15:40 A 5 Fr sheath was inserted into the Right Femoral artery 9:15:47 A MULTIPACK JL 4.0 5Fr catheter was advanced over the wire and used for Left Coronary Angiography. 9:16:03 LCA angiography performed. 9:16:06 Injector settings: Ml/sec: 3, Volume: 6, 9:17:03 Catheter removed. 9:17:07 A MULTIPACK 3DRC 5Fr catheter was advanced over the wire and used for Right Coronary Angiography. 9:17:58 RCA angiography performed. 9:18:01 Injector settings: Ml/sec: 3, Volume: 6, 9:18:04 Catheter removed. 9:18:10 A MULTIPACK Pigtail 5 Fr catheter was advanced over the wire and used for LV Angiography. 9:19:09 LV hemodynamics recorded. 9:19:10 LV gram done using SALAS 9:19:12 Injector settings: Ml/sec: 5, Volume: 15, 9:19:19 EF : 50 % 9:19:25 Catheter removed. 9:19:26 Proceeding to intervention. 9:19:45 WHISPER 300cm guide wire ([id number]) opened to sterile field. 9:19:46 GUIDE 6FR EBU 3.0 catheter ([id number]) opened to sterile field. 9:19:47 INFLATOR Merit BasixCompak (QP0647) opened to sterile field. 9:19:48 SHEATH Prelude 6Fr 0.035 (BMR-1K-95-035) opened to sterile field. 9:20:54 Versed 2 mg I.V. was administered by Alyssa Hemphill RN; for sedation; 9:21:00 Fentanyl 100 mcg I.V. was administered by Alyssa Hemphill RN; for sedation; 9:21:10 Heparin Bolus 4000 units I.V. was administered by Alyssa Hemphill RN; for anticoagulation; 9:21:18 Sheath upsized to a 6 Fr Short. 9:21:23 6 Fr ebu 3 guide catheter was inserted over the wire 9:21:28 whisper wire advanced. 9:21:34 Wire advanced across lesion. 9:23:25 Lopressor 5 mg I.V. was administered by Alyssa Hemphill RN; Per physician; 9:24:21 Inflate balloon Inflation number: 1 A EMERGE OTW 2.5 x 15 balloon ([id number]) was prepped and advanced across the Mid LAD, then inflated to 12 JEN for 0:10 (min:sec). 9:24:36 Inflation number: 2 The EMERGE OTW 2.5 x 15 balloon ([id number]) was reinflated across the Mid LAD, to 12 JEN for 0:30 (min:sec). 9:25:13 Balloon removed over the wire. 9:28:33 Place stent Inflation Number: 3 A ELIZABETH RX 3.0 x 15 stent ([id number]) was prepped and advanced across the Mid LAD. The stent was deployed at 14 JEN for 0:30 (min:sec). 9::32 Stent catheter was removed intact over wire. 9::33 Wire removed. 9::33 Guide catheter removed. 9:29:45 EXOSEAL 6Fr (EX600) opened to sterile field. 9:29:58 Sheath removed intact; hemostasis achieved with Exoseal to the Right Femoral artery. 9:30:00 Procedure ended.(Physican Out) 9:30:49 Fluoroscopy time 03.70 minutes. 9:30:54 Fluoroscopy dose: 297 mGy 9:30:54 Flurop Dose total: 297 9::58 Contrast amount:Isovue 300 92ml. 9:31:00 Sharps counted by scrub and verified by R.N. 9:31:01 Insertion/operative site no bleeding no hematoma. 9:31:04 Post-op/insertion site Right Femoral artery dressed using a 4 x 4 and Tegaderm. 9:31:07 Post right femoral artery:stable 9:31:11 Post procedure rhythm: unchanged. 9:31:13 Estimated blood loss: 5 ml 9:31:22 Post procedure instruction explained to patient.Patient verbalizes understanding. 9:31:22 Patient needs reinforcement of post procedure teaching. 9:31:43 Procedure type changed to Cath procedure, Diagnostic procedure, LHC, LHC w/Coronaries, Sedation Charges, Moderate Sedation up to 15 minutes, PCI procedure, Coronary Stent, Coronary Stent Initial 9:31:45 Procedure and supply charges have been captured, reviewed, submitted and are correct. 9::49 Procedure Complication : No complications 9::52 Vital chart was stopped 9::52 See physician's report for complete and final results. 9:31:57 Report given to [facility]. 9:31:59 Patient transfered to [facility] with Stretcher. 9:32:03 Procedure ended. 9:32:03 Full Disclosure recording stopped 9:32:16 ACC-PCI Only Patient was given prescriptions, or instructed by Liam Merrill MD to start/continue the following medications upon discharge: Plavix 9:32:18 End room use (Document Last) Intervention Summary Intervention Notes Time ActionType Lesion and Equipment Used Action# Pressure Duration Attributes 9:24:21 Inflate Mid LAD EMERGE OTW 2.5 1 12 00:10 balloon x 15 balloon ([id number]) 9:24:36 Reinflate Mid LAD EMERGE OTW 2.5 2 12 00:30 balloon x 15 balloon ([id number]) 9:28:33 Place stent Mid LAD ELIZABETH RX 3.0 x 3 14 00:30 15 stent ([id number]) Device Usage Item Name Manufacture Quantity Catalog Number Hospital Part Current Minimal Lot# / Charge Number Stock Stock Serial# Code ACIST Syringe Acist 1 70102 945862 650966 [id number] 20 (46701) Medical Systems Inc Bag Decanter Microtek 1 2001S 686526 10415 593588 5 () Medical Inc. Medline Cath Cardinal 1 [id number] 539370 91774 786438 5 Pack Health ([id number]) DIAGNOSTIC WIRE [place] 1 508294 548693 357046 443622 30 .035 260cm J wire (774861) ACIST Hand Acist 1 46463 583124 245503 927855 5 Control (09970) Medical Systems Inc ACIST Manifold Acist 1 67048 950622 412548 621754 5 (32222) Medical Systems Inc DIAGNOSTIC Cardinal 1 SF2912 900415 85988 544903 30 Multipack 5Fr Health catheter set (KH9750) Tegaderm 4 x 4 3M 1 1626W 945581 917226 077590 5 (1626W) SHEATH Prelude Merit 1 VTG-3Q-54-035 368238 656469 537098 5 5Fr 0.035 Medical (NWN-2V-32-035) MULTIPACK JL Cardinal 1 307231 5 4.0 5Fr Health catheter MULTIPACK 3DRC Cardinal 1 550768 5 5Fr catheter Health MULTIPACK Cardinal 1 117840 5 Pigtail 5 Fr Health catheter WHISPER 300cm [place] 1 [id number] 433378 823901 614425 5 guide wire Vascular ([id number]) GUIDE 6FR EBU Medtronic 1 [id number] 795267 39621 054557 0 3.0 catheter ([id number]) INFLATOR Merit Merit 1 JK6274 706385 686375 308883 15 BasixCompak Medical (PV9264) SHEATH Prelude Merit 1 PSJ-2Y-06-35 902252 9923152 717241 5 6Fr 0.035 Medical (OBU-3X-96035) EMERGE OTW 2.5 [place] 1 [id number] 468159 559024 215227 5 [id number] x 15 balloon Scientific ([id number]) ELIZABETH RX 3.0 x Medtronic 1 [id number] 068135 9212189 123445 5 [id number] 15 stent ([id number]) EXOSEAL 6Fr Cardinal 1 EX600 720400 701510 271355 10 (EX600) Health Signature Audit [place] Stage Time Signature Unsigned Intra-Procedure 01/16/2018 Aurora Israel 9:34:35 AM RT(R) Signatures Monitor : Aurora Israel RT Signature : Date : Time : [facility] [address] [place] [address]
--- NOTE | ~2018-01-14 | DS ---
PATIENT:MICHAEL SINGH :57 MEDICAL RECORD: [id number] DISCHARGE SUMMARY ADMISSION DATE: 01/14/18 DISCHARGE DATE: 01/16/18 DATE OF ADMISSION: 01/14/2018 DATE OF DISCHARGE: 01/16/2018 ADMISSION DIAGNOSES: Dyspnea on exertion, abnormal EKG, elevated cardiac enzymes, hypokalemia, UTI, anxiety and depression, peripheral vascular disease. DISCHARGE DIAGNOSES: Coronary artery disease, status post stent placement with resolution of symptoms; UTI; anxiety and depression; peripheral vascular disease. HOSPITAL COURSE: The patient was admitted, had anginal symptoms, abnormal EKG, elevated cardiac enzymes. Cardiology consulted. Echocardiogram obtained. The patient underwent cardiac catheterization with stent placement and resolution of symptoms. She was also found to have UTI, had improvement in symptoms with Rocephin empirically. The patient is anxious to go home. She is discharged home in significantly improved condition. She will follow up with cardiology as scheduled. Follow up with her primary care physician, Dr. Pickering, within 10 days. DISCHARGE MEDICATIONS: Per med rec. PHYSICAL EXAMINATION: VITAL SIGNS: On discharge, temperature 98.6, blood pressure 125/72, heart rate 85, respirations 18, and O2 sat 93% on room air. GENERAL: Alert, oriented, in no apparent distress. Slightly lethargic, status post heart cath with intervention. HEENT: Normocephalic and atraumatic. Eyes; pupils are equally round and reactive. Answers appropriately. HEART: Regular rate and rhythm. LUNGS: Clear. ABDOMEN: Soft and nontender. Bowel sounds in all 4 quadrants. EXTREMITIES: Present times 4. NEUROLOGIC: Intact. SKIN: Warm and dry. No rash. CBC on discharge; white count 4.4, hemoglobin 10.2, hematocrit 30.6, and platelets 127. Chemistry; sodium 142, potassium 3.8, chloride 107, bicarb 28.1, BUN 7, and creatinine 0.8. The patient will follow up with Dr. Pickering and with cardiology as scheduled. Magnesium was low. This will be supplemented prior to discharge. TRANSINT:[id number] Voice Confirmation ID: [id number] DOCUMENT ID: [id number] DISCHARGE SUMMARY REPORT [id number] MICHAEL SINGH HELEN ROLLINS DO at 0991 CC: [id number] DICTATION DATE: 01/16/18 6322 TOW MOTOR MECHANIC: 01/16/181927 DIS IN 01/16/18 [facility] [address] [facility] [address] [place], [facility]
[~2018-01-14 10:52] MED LIST changes: +LISINOPRIL10 MG PO; +MEDROL DOSE PACK4 MG PO; +ZPAK PO
[2018-01-14 11:28] LABS: BASOPHILS 0.5 % (0-2); EOSINOPHILS 0.8 % (0-7); HEMATOCRIT 40.5 % (36.0-48.0); IMMATURE GRANULOCYTES 0.1 % (0-5); LYMPHOCYTES 28.5 % (15-50); MCH 34.7 pg (26.0-34.0); MCHC 34.6 g/dL (31.0-37.0); MCV 100.5 fL (80.0-100.0); MEAN PLATELET VOLUME 10.4 fL (7.4-10.4); MONOCYTES 10.9 % (2-11); NEUTROPHILS 59.2 % (40-80); RBC 4.03 10x6/uL (4.00-5.40); RDW 12.8 % (11.5-14.5); WBC 8.5 10x3/uL (4.8-10.8)
[2018-01-14 11:31] LABS: PLATELET COUNT 246 10x3/uL (130-400)
[2018-01-14 11:48] LABS: INR 1.01 (0.85-1.17); PROTIME 12.9 SECONDS (11.6-15.0)
[2018-01-14 11:49] LABS: D-DIMER-QUANTITATIVE 0.77 ug/mLFEU (0.20-0.54)
[2018-01-14 12:00] VITALS: BP 102/73
[2018-01-14 12:05] LABS: ALBUMIN 3.8 g/dL (3.4-5.0); ALKALINE PHOSPHATASE 105 U/L (46-116); ALT (SGPT) 28 U/L (10-68); CALCIUM 9.1 mg/dL (8.5-10.1); CARBON DIOXIDE 20.8 mmol/L (21.0-32.0); CHLORIDE - SERUM 98 mmol/L (98-107); CKMB 6.8 U/L (0.0-3.6); CREATINE KINASE 101 UL (21-215); CREATININE - SERUM 1.3 mg/dL (0.6-1.3); PRO BNP 4501 pg/mL (0-125); PROTEIN - SERUM 7.6 g/dL (6.4-8.2); SODIUM 136 mmol/L (136-145); UREA NITROGEN 8 mg/dL (7-18); eGFR NON AFRICAN AMERICAN 44 mL/min (90-120)
[2018-01-14 12:07] LABS: CALC OSMOLALITY 270 mosm/kg (275-300); GLUCOSE 117 mg/dL (74-106)
[2018-01-14 12:13] LABS: POTASSIUM - SERUM 2.7 mmol/L (3.5-5.1)
[2018-01-14 12:14] LABS: TROPONIN-I 0.063 ng/mL (0.000-0.060)
[2018-01-14 13:03] LABS: APPEARANCE HAZY (CLEAR); BACTERIA MODERATE /hpf (NONE SEEN); BILIRUBIN NEGATIVE (NEGATIVE); COLOR YELLOW (YELLOW); GLUCOSE NEGATIVE (NEGATIVE); HYALINE CAST 0-5 /lpf (NONE SEEN); KETONE NEGATIVE (NEGATIVE); MUCUS <1+ /lpf (NONE SEEN); NITRITE NEGATIVE (NEGATIVE); PROTEIN TRACE mg/dL (NEGATIVE); RED CELLS - URINE 0-5 /hpf (0-5); UROBILINOGEN NORMAL (NORMAL); WHITE CELLS - URINE 0-5 /hpf (0-5)
[2018-01-14 13:52] VITALS: BP 118/77; BP 120/83
[2018-01-14 15:26] LABS: CKMB 5.7 U/L (0.0-3.6)
[2018-01-14 15:30] LABS: POTASSIUM - SERUM 4.3 mmol/L (3.5-5.1); TROPONIN-I 0.066 ng/mL (0.000-0.060)
[2018-01-14 21:13] VITALS: BP 113/71
[2018-01-14 21:23] LABS: CKMB 5.1 U/L (0.0-3.6); CREATINE KINASE 87 UL (21-215); TROPONIN-I 0.056 ng/mL (0.000-0.060)
[2018-01-15] VITALS (7 sets, daily range): BP systolic 88–134; BP diastolic 51–80; Ht 162.6 cm; Wt 56.8 kg
[2018-01-15 03:43] LABS: CKMB 4.1 U/L (0.0-3.6); CREATINE KINASE 84 UL (21-215); TROPONIN-I 0.049 ng/mL (0.000-0.060)
[2018-01-15 09:04] LABS: CREATINE KINASE 82 UL (21-215)
[2018-01-15 09:41] LABS: CKMB 4.1 U/L (0.0-3.6); TROPONIN-I 0.044 ng/mL (0.000-0.060)
[2018-01-15 13:48] LABS: BASOPHILS 0.4 % (0-2); EOSINOPHILS 1.6 % (0-7); HEMATOCRIT 34.5 % (36.0-48.0); HEMOGLOBIN 11.4 g/dL (12-16); IMMATURE GRANULOCYTES 0.1 % (0-5); LYMPHOCYTES 26.3 % (15-50); MCH 34.2 pg (26.0-34.0); MEAN PLATELET VOLUME 10.4 fL (7.4-10.4); MONOCYTES 8.3 % (2-11); NEUTROPHILS 63.3 % (40-80); RBC 3.33 10x6/uL (4.00-5.40); RDW 12.8 % (11.5-14.5); WBC 6.9 10x3/uL (4.8-10.8)
[2018-01-15 13:52] LABS: MCV 103.6 fL (80.0-100.0); PLATELET COUNT 147 10x3/uL (130-400)
[2018-01-15 13:55] LABS: ANION GAP 14.1 mmol/L (8-16); CALCIUM 8.3 mg/dL (8.5-10.1); POTASSIUM - SERUM 4.1 mmol/L (3.5-5.1)
[2018-01-16 00:30] VITALS: BP 142/79
[2018-01-16 04:30] VITALS: BP 149/72
[2018-01-16 05:08] LABS: BASOPHILS 0.5 % (0-2); EOSINOPHILS 2.3 % (0-7); HEMATOCRIT 30.6 % (36.0-48.0); HEMOGLOBIN 10.2 g/dL (12-16); IMMATURE GRANULOCYTES 0.2 % (0-5); LYMPHOCYTES 44.4 % (15-50); MCH 34.3 pg (26.0-34.0); MCHC 33.3 g/dL (31.0-37.0); MEAN PLATELET VOLUME 9.8 fL (7.4-10.4); MONOCYTES 8.5 % (2-11); NEUTROPHILS 44.1 % (40-80); PLATELET COUNT 127 10x3/uL (130-400); RBC 2.97 10x6/uL (4.00-5.40); RDW 12.7 % (11.5-14.5)
[2018-01-16 05:11] LABS: WBC 4.4 10x3/uL (4.8-10.8)
[2018-01-16 05:25] LABS: CALC OSMOLALITY 281 mosm/kg (275-300); CARBON DIOXIDE 28.1 mmol/L (21.0-32.0); CHLORIDE - SERUM 107 mmol/L (98-107); CREATININE - SERUM 0.8 mg/dL (0.6-1.3); GLUCOSE 117 mg/dL (74-106); MAGNESIUM - SERUM 1.4 mg/dL (1.8-2.4); PHOSPHOROUS 3.6 mg/dL (2.5-4.9); POTASSIUM - SERUM 3.8 mmol/L (3.5-5.1); SODIUM 142 mmol/L (136-145); eGFR NON AFRICAN AMERICAN 77 mL/min (90-120)
[2018-01-16 05:26] LABS: UREA NITROGEN 7 mg/dL (7-18)
[2018-01-16 08:37] VITALS: BP 160/73
[2018-01-16 11:16] VITALS: BP 125/72
[2018-01-16] MEDS ORDERED: CEFUROXIME500 MG PO (11:28)
== END 2018-01-16 16:55 | disposition home or self-care (01) | DRG 247 ==
LOC: D.ER 10:52 → D.M2 17:57 → D.EDHOLD 17:57 → D.M2 18:03
PROVIDERS: Emergency Medicine; Family Medicine; Internal Medicine Interventional Cardiology
PROC: B2111ZZ Fluoroscopy of Multiple Coronary Arteries using Low Osmolar Contrast (ICD-10-PCS; 2018-01-16)
PROC: B2151ZZ Fluoroscopy of Left Heart using Low Osmolar Contrast (ICD-10-PCS; 2018-01-16)
PROC: 027034Z Dilation of Coronary Artery, One Artery with Drug-eluting Intraluminal Device, Percutaneous Approach (ICD-10-PCS; principal; 2018-01-16 08:30)
PROC: 4A023N7 Measurement of Cardiac Sampling and Pressure, Left Heart, Percutaneous Approach (ICD-10-PCS; 2018-01-16 08:30)
DX: I21.4 Non-ST elevation (NSTEMI) myocardial infarction (principal); N39.0 Urinary tract infection, site not specified; J44.9 Chronic obstructive pulmonary disease, unspecified; I73.9 Peripheral vascular disease, unspecified; G25.81 Restless legs syndrome; E87.6 Hypokalemia; I25.119 Atherosclerotic heart disease of native coronary artery with unspecified angina pectoris; F41.9 Anxiety disorder, unspecified; F32.9 Major depressive disorder, single episode, unspecified; R94.31 Abnormal electrocardiogram [ECG] [EKG]; Z72.0 Tobacco use

== ENCOUNTER → 2018-06-15 22:27 | Outpatient (CLI) | payer MEDICAID ==
[2018-01-15 01:44] VITALS: BMI 19.7
[~2018-06-15 22:27] MED LIST changes: +CEFUROXIME500 MG PO
[2018-06-16 00:29] LABS: BASOPHILS 0.4 % (0-2); HEMATOCRIT 42.5 % (36.0-48.0); HEMOGLOBIN 14.4 g/dL (12-16); IMMATURE GRANULOCYTES 0.1 % (0-5); LYMPHOCYTES 37.1 % (15-50); MCHC 33.9 g/dL (31.0-37.0); MCV 91.6 fL (80.0-100.0); MEAN PLATELET VOLUME 10.7 fL (7.4-10.4); MONOCYTES 6.6 % (2-11); NEUTROPHILS 53.8 % (40-80); PLATELET COUNT 253 10x3/uL (130-400); RBC 4.64 10x6/uL (4.00-5.40); RDW 13.1 % (11.5-14.5)
[2018-06-16 00:54] LABS: ALBUMIN 4.3 g/dL (3.4-5.0); ANION GAP 16.8 mmol/L (8-16); BILIRUBIN - TOTAL 0.2 mg/dL (0.2-1.3); CALCIUM 9.4 mg/dL (8.5-10.1); CARBON DIOXIDE 26.6 mmol/L (21.0-32.0); CREATININE - SERUM 0.9 mg/dL (0.6-1.3); POTASSIUM - SERUM 3.4 mmol/L (3.5-5.1); PROTEIN - SERUM 8.2 g/dL (6.4-8.2)
[2018-06-16 06:52] LABS: HELICOBACTER PYLORI IGG NEGATIVE (NEGATIVE)
== END | disposition home or self-care (01) ==
LOC: D.LABREF 22:27
PROVIDERS: ATTEND Legal Medicine
DX: R10.9 Unspecified abdominal pain (principal)

== ENCOUNTER 2018-07-11 18:25 | Emergency (ER) | payer MEDICARE ==
[~2018-07-11] VITALS: Ht 162.6 cm; Wt 55.5 kg
[2018-07-11 18:56] VITALS: Ht 162.6 cm; Wt 55.5 kg
[2018-07-11 19:24] LABS: BASOPHILS 0.6 % (0-2); HEMATOCRIT 38.9 % (36.0-48.0); HEMOGLOBIN 13.1 g/dL (12-16); IMMATURE GRANULOCYTES 0.1 % (0-5); LYMPHOCYTES 40.9 % (15-50); MCH 30.6 pg (26.0-34.0); MCHC 33.7 g/dL (31.0-37.0); MCV 90.9 fL (80.0-100.0); MEAN PLATELET VOLUME 10.8 fL (7.4-10.4); MONOCYTES 11.4 % (2-11); PLATELET COUNT 221 10x3/uL (130-400); RBC 4.28 10x6/uL (4.00-5.40); RDW 12.8 % (11.5-14.5); WBC 8.7 10x3/uL (4.8-10.8)
[2018-07-11 19:32] LABS: ALBUMIN 4.3 g/dL (3.4-5.0); ALKALINE PHOSPHATASE 79 U/L (46-116); ALT (SGPT) 29 U/L (10-68); BILIRUBIN - TOTAL 0.58 mg/dL (0.2-1.3); CALC OSMOLALITY 271 mosm/kg (275-300); CARBON DIOXIDE 28.2 mmol/L (21.0-32.0); CHLORIDE - SERUM 97 mmol/L (98-107); CREATININE - SERUM 1.3 mg/dL (0.6-1.3); GLUCOSE 107 mg/dL (74-106); POTASSIUM - SERUM 3.3 mmol/L (3.5-5.1); PROTEIN - SERUM 8.3 g/dL (6.4-8.2); SODIUM 136 mmol/L (136-145); UREA NITROGEN 12 mg/dL (7-18); eGFR NON AFRICAN AMERICAN 44 mL/min (90-120)
[2018-07-11 19:38] LABS: APTT 24.8 SECONDS (22.8-39.4); INR 0.97 (0.85-1.17); PROTIME 12.4 SECONDS (11.6-15.0)
[2018-07-11 19:43] LABS: CKMB 1.1 U/L (0.0-3.6); CREATINE KINASE 110 UL (21-215); MAGNESIUM - SERUM 2.1 mg/dL (1.8-2.4); TROPONIN-I < 0.017 ng/mL (0.000-0.060)
[2018-07-11 22:40] VITALS: BP 130/86
== END 2018-07-11 22:40 | disposition home or self-care (01) ==
LOC: D.ER 18:25
PROVIDERS: Family Medicine
DX: I95.1 Orthostatic hypotension (principal)

== ENCOUNTER 2018-07-26 23:27 | Observation (INO) | payer MEDICARE ==
[2018-07-27] VITALS (9 sets, daily range): BP systolic 98–159; BP diastolic 63–93; BMI 20.2
[2018-07-27 00:15] LABS: BASOPHILS 0.3 % (0-2); EOSINOPHILS 0.7 % (0-7); HEMATOCRIT 37.2 % (36.0-48.0); HEMOGLOBIN 12.9 g/dL (12-16); IMMATURE GRANULOCYTES 0.1 % (0-5); LYMPHOCYTES 22.7 % (15-50); MCH 30.9 pg (26.0-34.0); MCHC 34.7 g/dL (31.0-37.0); MEAN PLATELET VOLUME 10.8 fL (7.4-10.4); MONOCYTES 9.2 % (2-11); PLATELET COUNT 232 10x3/uL (130-400); RBC 4.18 10x6/uL (4.00-5.40); WBC 10.8 10x3/uL (4.8-10.8)
[2018-07-27 00:27] LABS: APTT 25.5 SECONDS (22.8-39.4); INR 1.03 (0.85-1.17)
[2018-07-27 00:33] LABS: ALBUMIN 4.1 g/dL (3.4-5.0); ALKALINE PHOSPHATASE 73 U/L (46-116); ALT (SGPT) 21 U/L (10-68); BILIRUBIN - TOTAL 0.46 mg/dL (0.2-1.3); CALC OSMOLALITY 272 mosm/kg (275-300); CALCIUM 8.7 mg/dL (8.5-10.1); CARBON DIOXIDE 29.1 mmol/L (21.0-32.0); CHLORIDE - SERUM 95 mmol/L (98-107); CREATININE - SERUM 2.4 mg/dL (0.6-1.3); GLUCOSE 122 mg/dL (74-106); POTASSIUM - SERUM 3.1 mmol/L (3.5-5.1); PROTEIN - SERUM 8.3 g/dL (6.4-8.2); SODIUM 134 mmol/L (136-145); UREA NITROGEN 24 mg/dL (7-18); eGFR NON AFRICAN AMERICAN 22 mL/min (90-120)
[2018-07-27 00:41] LABS: CKMB 1.3 U/L (0.0-3.6); CREATINE KINASE 95 UL (21-215); MAGNESIUM - SERUM 1.7 mg/dL (1.8-2.4)
[2018-07-27 00:43] LABS: TROPONIN-I < 0.017 ng/mL (0.000-0.060)
[2018-07-27 06:18] LABS: ANION GAP 12.4 mmol/L (8-16); CALCIUM 8.3 mg/dL (8.5-10.1); CARBON DIOXIDE 25.5 mmol/L (21.0-32.0); PHOSPHOROUS 2.6 mg/dL (2.5-4.9)
[2018-07-27 06:20] LABS: MAGNESIUM - SERUM 2.4 mg/dL (1.8-2.4); POTASSIUM - SERUM 3.9 mmol/L (3.5-5.1)
[2018-07-27 06:32] LABS: BASOPHILS 0.2 % (0-2); EOSINOPHILS 0.9 % (0-7); HEMATOCRIT 32.4 % (36.0-48.0); HEMOGLOBIN 10.8 g/dL (12-16); IMMATURE GRANULOCYTES 0.1 % (0-5); LYMPHOCYTES 23.8 % (15-50); MCH 29.9 pg (26.0-34.0); MCHC 33.3 g/dL (31.0-37.0); MCV 89.8 fL (80.0-100.0); MONOCYTES 9.2 % (2-11); NEUTROPHILS 65.8 % (40-80); PLATELET COUNT 187 10x3/uL (130-400); RBC 3.61 10x6/uL (4.00-5.40); WBC 8.9 10x3/uL (4.8-10.8)
[2018-07-27] MEDS ORDERED: LISINOPRIL-HCT1 EAC7 PO (08:11)
[2018-07-27] MEDS ORDERED: COMBIVENT RESPIM4 GM INH (08:12)
[2018-07-27] MEDS ORDERED: ADVAIR HFA 230-12 GM INH (08:12)
[2018-07-27] MEDS ORDERED: PEPCID AC20 MG PO (08:13)
[2018-07-27] MEDS ORDERED: CARAFATE1 G PO (08:13)
[2018-07-27] MEDS ORDERED: XALATAN 0.0052.5 ML EACH EYE (08:14)
[2018-07-28] VITALS: BP 141/74
[2018-07-28 04:00] VITALS: BP 151/89
[2018-07-28 05:52] LABS: BASOPHILS 0.3 % (0-2); EOSINOPHILS 4.7 % (0-7); HEMATOCRIT 33.8 % (36.0-48.0); HEMOGLOBIN 11.4 g/dL (12-16); IMMATURE GRANULOCYTES 0.3 % (0-5); LYMPHOCYTES 36.7 % (15-50); MCH 30.4 pg (26.0-34.0); MCHC 33.7 g/dL (31.0-37.0); MCV 90.1 fL (80.0-100.0); MEAN PLATELET VOLUME 10.6 fL (7.4-10.4); MONOCYTES 8.2 % (2-11); NEUTROPHILS 49.8 % (40-80); PLATELET COUNT 165 10x3/uL (130-400); RBC 3.75 10x6/uL (4.00-5.40); RDW 12.9 % (11.5-14.5)
[2018-07-28 05:55] LABS: WBC 6.6 10x3/uL (4.8-10.8)
[2018-07-28 06:01] LABS: ANION GAP 14.6 mmol/L (8-16); CALCIUM 8.5 mg/dL (8.5-10.1); CARBON DIOXIDE 24.6 mmol/L (21.0-32.0); POTASSIUM - SERUM 4.2 mmol/L (3.5-5.1)
[2018-07-28 08:36] VITALS: BP 150/81
--- NOTE | 2018-07-29 08:37 | MORECARE ---
CASE MANAGEMENT DISCHARGE SUMMARY PATIENT: MICHAEL SINGH UNIT: [id number] ADM DATE: 07/27/18 AGE: 63 : 57 SEX: F ROOM/BED: D.0194 AUTHOR: NIA PICKERING PHYSICIAN: REFERRING PHYSICIAN: MANUEL OLIVO MD DATE OF SERVICE: 07/29/18 Discharge Plan Patient Name: MICHAEL SINGH Facility: [facility]:[place] : 1955 Planned Disposition: Home Anticipated Discharge Date: 07/28/18 Discharge Date: 07/28/2018 Expected LOS: 1 Initial Reviewer: [email or web address] Initial Review Date: 07/29/2018 Generated: 07/29/18 9:37 am Patient Name: MICHAEL SINGH Page 00321 at 0837 All edits/amendments must be made on the electronic document DICTATION DATE: 07/29/18835 MUD JACK NOZZLEMAN: DM 07/29/18835 RPT#: [id number] DC DATE:07/28/18 STATUS: DIS IN [facility] [address] [facility] [place] [address] END OF REPORT
== END 2018-07-28 11:30 | disposition home or self-care (01) ==
LOC: D.ER 23:27 → D.EDHOLD 07-27 01:00 → D.M2 07-27 01:33
PROVIDERS: Family Medicine; Legal Medicine; ADMIT Emergency Medicine
DX: I95.1 Orthostatic hypotension (principal); N17.9 Acute kidney failure, unspecified; E87.1 Hypo-osmolality and hyponatremia; E83.42 Hypomagnesemia; F41.9 Anxiety disorder, unspecified; F32.9 Major depressive disorder, single episode, unspecified; R19.7 Diarrhea, unspecified

== ENCOUNTER → 2018-09-26 11:59 | Outpatient (CLI) | payer OTHER ==
[2018-07-27 17:27] VITALS: BMI 20.2
[~2018-09-26 11:59] MED LIST changes: +ADVAIR HFA 230-12 GM INH; +CARAFATE1 G PO; +COMBIVENT RESPIM4 GM INH; +LISINOPRIL-HCT1 EAC7 PO; +PEPCID AC20 MG PO; +XALATAN 0.0052.5 ML EACH EYE
== END | disposition home or self-care (01) ==
LOC: D.RAD 11:59
PROVIDERS: ATTEND Emergency Medicine
DX: S69.92XA Unspecified injury of left wrist, hand and finger(s), initial encounter (principal); X58.XXXA Exposure to other specified factors, initial encounter

== ENCOUNTER 2018-11-27 10:17 | Observation (INO) | payer OTHER ==
[~2018-11-27] VITALS: Ht 162.6 cm; Wt 54.4 kg
[2018-11-27 10:47] LABS: BASOPHILS 0.4 % (0-2); EOSINOPHILS 2.1 % (0-7); HEMATOCRIT 40.1 % (36.0-48.0); HEMOGLOBIN 13.8 g/dL (12-16); IMMATURE GRANULOCYTES 0.1 % (0-5); LYMPHOCYTES 29.5 % (15-50); MCH 32.7 pg (26.0-34.0); MCHC 34.4 g/dL (31.0-37.0); MEAN PLATELET VOLUME 9.7 fL (7.4-10.4); MONOCYTES 10.5 % (2-11); NEUTROPHILS 57.4 % (40-80); RBC 4.22 10x6/uL (4.00-5.40); RDW 13.4 % (11.5-14.5); WBC 7.5 10x3/uL (4.8-10.8)
[2018-11-27 10:48] LABS: PLATELET COUNT 235 10x3/uL (130-400)
[2018-11-27 11:05] LABS: ALBUMIN 3.6 g/dL (3.4-5.0); ALKALINE PHOSPHATASE 101 U/L (46-116); ALT (SGPT) 47 U/L (10-68); BILIRUBIN - TOTAL 0.59 mg/dL (0.2-1.3); CALC OSMOLALITY 280 mosm/kg (275-300); CALCIUM 8.4 mg/dL (8.5-10.1); CARBON DIOXIDE 25.9 mmol/L (21.0-32.0); CHLORIDE - SERUM 103 mmol/L (98-107); GLUCOSE 96 mg/dL (74-106); POTASSIUM - SERUM 3.7 mmol/L (3.5-5.1); SODIUM 140 mmol/L (136-145); UREA NITROGEN 18 mg/dL (7-18); eGFR NON AFRICAN AMERICAN 59 mL/min (90-120)
[2018-11-27 11:16] LABS: CKMB 0.9 U/L (0.0-3.6); CREATINE KINASE 98 UL (21-215); INR 1.07 (0.85-1.17); MAGNESIUM - SERUM 2.2 mg/dL (1.8-2.4); PROTIME 13.4 SECONDS (11.6-15.0)
[2018-11-27 11:17] LABS: TROPONIN-I < 0.017 ng/mL (0.000-0.060)
[2018-11-27 11:58] VITALS: BP 122/72
--- NOTE | 2018-11-27 12:25 | NUR ---
PATIENT GIVEN WATER AND SANDWICH TRAY; UPDATED ON PLAN OF CARE AND DELAYS IN CARE; WILL CONTINUE TO MONITOR.
[2018-11-27] MEDS ORDERED: LISINOPRIL20 MG PO (13:12)
[2018-11-27 13:23] LABS: CREATINE KINASE 94 UL (21-215); TROPONIN-I < 0.017 ng/mL (0.000-0.060)
--- NOTE | 2018-11-27 13:23 | NUR ---
RECIVED FROM ER PER BED TO ROOM 2123, WITHOUT DISTRESS NOTED. RN FOR ADMIT ASSESSMENT .
[2018-11-27 13:39] VITALS: BP 131/82; BMI 20.6
[2018-11-27 14:55] VITALS: BP 131/82
--- NOTE | 2018-11-27 15:47 | NUR ---
I have reviewed this patient and I concur with the Shift Assessment completed by the Licensed Practical Nurse today this shift.
--- NOTE | 2018-11-27 17:07 | NUR ---
WOITOUT CHANGES OR DISTRESS NOTED AT THIS TIME. DENIES NEEDS
[2018-11-27] MEDS ORDERED: REMERON30 MG PO (18:23)
[2018-11-27 19:17] LABS: CKMB 0.7 U/L (0.0-3.6); CREATINE KINASE 93 UL (21-215)
[2018-11-27 19:18] LABS: TROPONIN-I < 0.017 ng/mL (0.000-0.060)
--- NOTE | 2018-11-27 19:49 | NUR ---
RECEIVED REPORT, WILL ASSUME CARE OF PT, ASSIST TO RESTROOM AND BACK TO BED, BED IS LOW, SRX2, CALL LIGHT IN REACH, WILL CONTINUE PLAN OF CARE
[2018-11-27 20:00] VITALS: BP 118/71
[2018-11-28] VITALS: BP 126/72
[2018-11-28 00:51] LABS: CKMB 0.9 U/L (0.0-3.6); CREATINE KINASE 84 UL (21-215)
[2018-11-28 00:52] LABS: TROPONIN-I < 0.017 ng/mL (0.000-0.060)
[2018-11-28 04:00] VITALS: BP 149/80
--- NOTE | 2018-11-28 04:44 | NUR ---
I have reviewed this patient and I concur with the Shift Assessment completed by the Licensed Practical Nurse today this shift.
--- NOTE | 2018-11-28 04:45 | NUR ---
I have reviewed this patient and I concur with the Shift Assessment completed by the Licensed Practical Nurse today this shift.
[2018-11-28 05:54] LABS: BASOPHILS 0.4 % (0-2); EOSINOPHILS 4.4 % (0-7); HEMOGLOBIN 12.1 g/dL (12-16); IMMATURE GRANULOCYTES 0.2 % (0-5); LYMPHOCYTES 43.8 % (15-50); MCH 31.8 pg (26.0-34.0); MCHC 32.7 g/dL (31.0-37.0); MCV 97.1 fL (80.0-100.0); MEAN PLATELET VOLUME 9.9 fL (7.4-10.4); NEUTROPHILS 42.2 % (40-80); PLATELET COUNT 159 10x3/uL (130-400); RBC 3.81 10x6/uL (4.00-5.40); RDW 13.5 % (11.5-14.5); WBC 5.2 10x3/uL (4.8-10.8)
[2018-11-28 06:10] LABS: ANION GAP 10.9 mmol/L (8-16); CALCIUM 7.5 mg/dL (8.5-10.1); CARBON DIOXIDE 26.8 mmol/L (21.0-32.0); CREATININE - SERUM 0.9 mg/dL (0.6-1.3); POTASSIUM - SERUM 3.7 mmol/L (3.5-5.1)
[2018-11-28 08:39] VITALS: BP 159/76
[2018-11-28 11:43] VITALS: BP 176/88
--- NOTE | 2018-11-28 14:30 | CN ---
PATIENT NAME:MICHAEL SINGH MEDICAL RECORD: [id number] : 57 LOCATION:. D.2124 ADMIT DATE: 11/27/18 ACCOUNT: [id number] CONSULTING PHYSICIAN: VERONA SINGLETARY MD REFERRING PHYSICIAN: MANUEL OLIVO MD DATE OF CONSULTATION: 11/28/2018 HISTORY OF PRESENT ILLNESS: A 63-year-old female with a known history of coronary artery disease status post stenting to the diagonal approximately 10 months ago. She was admitted with falls, by her report. She recently started on penicillin, developed some rash, started on Vistaril, has had tiredness, fatigue and not true syncope by her report, just loss of leg strength, multiple falls over the last 48 hours, improved since stopping this agent and hydration. We are asked to see her concerning her cardiovascular status. PAST MEDICAL HISTORY: Includes: 1. History of coronary artery disease. 2. Hypertension. 3. Dyslipidemia, currently off statins due to myalgias. 4. Gastroesophageal reflux disease. ALLERGIES: INCLUDE BACTRIM, CODEINE, AND ASPIRIN. MEDICATIONS: Include Combivent 1 puff q.i.d., Plavix 75 every day, lisinopril 20 p.o. daily, Dante 10/325 q.6 hours p.r.n., Requip 2 mg p.o. q.h.s., Remeron 15 mg q.h.s., Carafate 1 g a.c and q.h.s. SOCIAL HISTORY: Smokes about a pack a day, nondrinker. Easily takes care of all her ADLs, retired as a communications project manager here. REVIEW OF SYSTEMS: The patient reports easy bruising but reports no swollen glands. The patient reports no fever, no night sweats, no significant weight gain, no significant weight loss. No significant exercise tolerance. The patient reports no dry eyes, no irritation, no vision change. Patient reports no difficulty hearing and no ear pain. Patient reports no frequent nose bleeds or nose and sinus problems. Patient reports on arm pain on exertion. No shortness of breath while lying down. No history of heart murmur. Patient reports no cough, no wheezing or coughing up blood. Patient reports no abdominal pain, no vomiting. Normal appetite. No diarrhea and not vomiting blood. No nausea and no constipation. Patient reports no incontinence. No difficulty urinating. No hematuria. No increased frequency. Patient reports no muscle aches. No weakness, no arthralgias, no back pain. No swelling of the extremities. Patient reports no abnormal mole, no jaundice, no rashes. Reports no loss of consciousness. No weakness and no numbness. No seizures, dizziness, or headaches. The patient reports no depression, no sleep disturbance, feeling safe in a relationship and no alcohol abuse. Patient reports on fatigue. Reports no runny nose or sinus pressure. No itching, no hives, and no frequent sneezing. PHYSICAL EXAMINATION: GENERAL: Well-developed, well-nourished female, appears stated age, in no acute distress. VITAL SIGNS: Blood pressure 176/88, pulse 71 and regular. HEENT: Normocephalic, atraumatic. NECK: No JVD or bruit. CONSULT REPORT [id number] FRANCISCOMICHAEL HEART: Regular. LUNGS: [place] clear. ABDOMEN: Soft, nontender. EXTREMITIES: Pulses 2+. No edema. DIAGNOSTIC DATA: ECG without acute change. Telemetry shows no significant arrhythmias. IMPRESSION: Falls/near syncope, suspect certainly related to starting Vistaril, and penicillin. No further symptomatology at this point. No contraindication to discharge from my standpoint. TRANSINT:[id number] Voice Confirmation ID: [id number] DOCUMENT ID: [id number] VERONA SINGLETARY MD at 1430 CC: [id number] DICTATION DATE: 11/28/18 1239 BODY MAKER MACHINE SETTER: 11/28/18 1250 ADM IN [place] [id number] [place] [address]
[2018-11-28 15:19] VITALS: Ht 162.6 cm; Wt 54.4 kg
--- NOTE | 2018-11-28 19:14 | NUR ---
PT DISCHARGED. TO PRIVATE CAR PER WHEEL CHAIR
== END 2018-11-28 19:15 | disposition home or self-care (01) ==
LOC: D.ER 10:17 → D.M2 12:16 → OBSVTIME 12:16 → D.M2 11-28 19:15
PROVIDERS: Family Medicine; Legal Medicine; ADMIT Emergency Medicine; ATTEND Emergency Medicine
DX: R55 Syncope and collapse (principal); I25.10 Atherosclerotic heart disease of native coronary artery without angina pectoris; S60.211A Contusion of right wrist, initial encounter; W19.XXXA Unspecified fall, initial encounter; I10 Essential (primary) hypertension; F17.200 Nicotine dependence, unspecified, uncomplicated; K21.9 Gastro-esophageal reflux disease without esophagitis; E78.5 Hyperlipidemia, unspecified

== ENCOUNTER → 2019-06-26 18:37 | Outpatient (CLI) | payer OTHER ==
[2018-11-28 15:19] VITALS: BMI 20.6
[~2019-06-26 18:37] MED LIST changes: +LISINOPRIL20 MG PO; +REMERON30 MG PO
== END | disposition home or self-care (01) ==
LOC: D.MAMMO 13:00
PROVIDERS: ATTEND Emergency Medicine
DX: N63.21 Unspecified lump in the left breast, upper outer quadrant (principal)

== ENCOUNTER 2020-06-01 13:33 | Inpatient (IN) | payer OTHER ==
[~2020-06-01] VITALS: Ht 162.6 cm; Wt 45.4 kg
[~2020-06-01 13:33] MED LIST changes: +BUPROPION HCL75 MG PO; +CHRONULAC30 ML PO; +CYCLOBENZAPRINE10 MG PO; +NORVASC5 MG PO; +PROZAC40 MG PO; +ROPINIROLE HCL2 MG PO
[2020-06-01 15:50] LABS: BASOPHILS 0.4 % (0-2); EOSINOPHILS 2.9 % (0-7); HEMATOCRIT 33.3 % (36.0-48.0); HEMOGLOBIN 10.8 g/dL (12-16); IMMATURE GRANULOCYTES 0.1 % (0-5); LYMPHOCYTE ABS# 1.95 10x3/uL (1.18-3.74); LYMPHOCYTES 28.5 % (15-50); MCH 31.4 pg (26.0-34.0); MCHC 32.4 g/dL (31.0-37.0); MCV 96.8 fL (80.0-100.0); MEAN PLATELET VOLUME 8.7 fL (7.4-10.4); NEUTROPHIL ABS# 4.24 10x3/uL (1.56-6.13); NEUTROPHILS 62.1 % (40-80); RBC 3.44 10x6/uL (4.00-5.40); RDW 13.2 % (11.5-14.5); WBC 6.8 10x3/uL (4.8-10.8)
[2020-06-01 15:53] LABS: PLATELET COUNT 273 10x3/uL (130-400)
[2020-06-01 15:56] LABS: APTT 26.1 SECONDS (22.8-39.4); INR 1.1 (0.85-1.17); PROTIME 13.2 SECONDS (11.6-15.0)
[2020-06-01 15:58] LABS: ANION GAP 17.4 mmol/L (8-16); CALCIUM 9.2 mg/dL (8.5-10.1); CARBON DIOXIDE 24.1 mmol/L (21.0-32.0); CREATININE - SERUM 1.1 mg/dL (0.6-1.3); POTASSIUM - SERUM 4.5 mmol/L (3.5-5.1)
[2020-06-01 16:04] LABS: ALBUMIN 3.9 g/dL (3.4-5.0); BILIRUBIN - TOTAL 0.25 mg/dL (0.2-1.3); PROTEIN - SERUM 8.1 g/dL (6.4-8.2)
--- NOTE | 2020-06-01 18:51 | NUR ---
REPORT ATTEMPTED X 1
[2020-06-01 19:31] VITALS: BP 127/62
[2020-06-01] MEDS ORDERED: REMERON15 MG PO (20:31)
[2020-06-01 20:37] VITALS: BP 122/74
--- NOTE | 2020-06-01 20:39 | NUR ---
RECEIVED TO ROOM. ALERT.ORIENTED NO COMPLAINTS VOICED.IV TO LFA INTACT WITHOUT REDNESS OR EDEMA NOTED. ORIENTED TO ROOM. CL IN REACH
[2020-06-02 02:18] VITALS: BMI 17.2
[2020-06-02 04:44] VITALS: BP 122/67
[2020-06-02 07:59] LABS: APTT 21.2 SECONDS (22.8-39.4); INR 1.02 (0.85-1.17); PROTIME 12.3 SECONDS (11.6-15.0)
[2020-06-02 08:04] LABS: ALBUMIN 3.2 g/dL (3.4-5.0); ANION GAP 16.4 mmol/L (8-16); BILIRUBIN - TOTAL 0.15 mg/dL (0.2-1.3); CALCIUM 8.7 mg/dL (8.5-10.1); CARBON DIOXIDE 23.7 mmol/L (21.0-32.0); CREATININE - SERUM 0.9 mg/dL (0.6-1.3); POTASSIUM - SERUM 5.1 mmol/L (3.5-5.1); PROTEIN - SERUM 6.6 g/dL (6.4-8.2)
[2020-06-02 08:35] LABS: BASOPHILS 0.4 % (0-2); EOSINOPHILS 3.6 % (0-7); HEMATOCRIT 30.6 % (36.0-48.0); HEMOGLOBIN 9.7 g/dL (12-16); IMMATURE GRANULOCYTES 0.2 % (0-5); LYMPHOCYTES 38.3 % (15-50); MCH 31.3 pg (26.0-34.0); MCHC 31.7 g/dL (31.0-37.0); MCV 98.7 fL (80.0-100.0); MEAN PLATELET VOLUME 9.1 fL (7.4-10.4); MONOCYTES 9.6 % (2-11); NEUTROPHILS 47.9 % (40-80); PLATELET COUNT 241 10x3/uL (130-400); RDW 13.5 % (11.5-14.5); WBC 5.2 10x3/uL (4.8-10.8)
[2020-06-02 10:34] VITALS: BP 110/74
[2020-06-02 11:00] VITALS: BP 94/53
[2020-06-02 16:00] VITALS: BP 163/61
[2020-06-02 19:58] VITALS: BP 140/68
--- NOTE | 2020-06-02 20:30 | NUR ---
SITTING UP IN BED WATCHING TV. NO COMPLAINTS VOICED. IV TO LFA INTACT WIHTOUT REDNESS OR EDEMA NOTED.CL IN REACH
[2020-06-03 06:13] LABS: BASOPHILS 0.4 % (0-2); EOSINOPHILS 4.6 % (0-7); HEMOGLOBIN 9.4 g/dL (12-16); IMMATURE GRANULOCYTES 0.2 % (0-5); LYMPHOCYTE ABS# 1.75 10x3/uL (1.18-3.74); LYMPHOCYTES 33.6 % (15-50); MCH 30.6 pg (26.0-34.0); MCHC 31.3 g/dL (31.0-37.0); MCV 97.7 fL (80.0-100.0); MEAN PLATELET VOLUME 8.9 fL (7.4-10.4); MONOCYTES 12.7 % (2-11); NEUTROPHIL ABS# 2.53 10x3/uL (1.56-6.13); NEUTROPHILS 48.5 % (40-80); PLATELET COUNT 260 10x3/uL (130-400); RBC 3.07 10x6/uL (4.00-5.40); RDW 13.3 % (11.5-14.5); WBC 5.2 10x3/uL (4.8-10.8)
[2020-06-03 06:24] VITALS: BP 144/69
[2020-06-03 06:27] LABS: ALBUMIN 3.2 g/dL (3.4-5.0); ALKALINE PHOSPHATASE 137 U/L (30-120); ALT (SGPT) 16 U/L (10-68); BILIRUBIN - TOTAL 0.16 mg/dL (0.2-1.3); CALC OSMOLALITY 279 mosm/kg (275-300); CALCIUM 9.1 mg/dL (8.5-10.1); CARBON DIOXIDE 23.4 mmol/L (21.0-32.0); CHLORIDE - SERUM 105 mmol/L (98-107); CREATININE - SERUM 0.8 mg/dL (0.6-1.3); GLUCOSE 103 mg/dL (74-106); SODIUM 140 mmol/L (136-145); UREA NITROGEN 16 mg/dL (7-18); eGFR NON AFRICAN AMERICAN 76 mL/min (90-120)
[2020-06-03 06:28] LABS: POTASSIUM - SERUM 4.1 mmol/L (3.5-5.1)
--- NOTE | 2020-06-03 07:15 | NUR ---
REC'D IN BED AWAKE AND ALERT. RESP EVEN AND UNLABORED WITH NO DISTRESS NOTED. CAN EXPRESS NEEDS AND WANT. NO C/O NOTED OR VOICED. ASSESSMENT COMPLETED. C/L IN REACH AT BEDSIDE.
[2020-06-03 09:13] VITALS: BP 156/92
--- NOTE | 2020-06-03 10:18 | NUR ---
WAS MEDICATED WITH OXY IR FOR C/O OAIN RATING 7/10 ON PAIN SCALE. C/L IN REACH AT BEDSIDE.
--- NOTE | 2020-06-03 12:22 | NUR ---
I have reviewed this patient and I concur with the Shift Assessment completed by the Licensed Practical Nurse today this shift.
[2020-06-03 14:12] VITALS: BP 106/71
[2020-06-03 18:15] VITALS: BP 133/85
--- NOTE | 2020-06-03 18:21 | NUR ---
WAS MEDICATE WITH OXY IR PER ORDERS FOR C/O GENERALIZED PAIN. C/L IN REACH AT BEDSIDE.
[2020-06-03 21:36] VITALS: BP 151/86
--- NOTE | 2020-06-03 22:00 | NUR ---
AMBULATING FROM BATHROOM TO BED, A&O X 4. CARISA DAHL PER REQUEST, CTM.
[2020-06-04] VITALS: BP 112/66
--- NOTE | 2020-06-04 02:55 | NUR ---
I have reviewed this patient and I concur with the Shift Assessment completed by the Licensed Practical Nurse today this shift.
[2020-06-04 05:39] VITALS: BP 113/69
[2020-06-04 08:32] VITALS: BP 123/69
--- NOTE | 2020-06-04 12:13 | NUR ---
MEDICATED WITH OXY PER ORDERS FOR C/O PAIN RATING 8/10 ON PAIN SCALE.
[2020-06-04 13:02] VITALS: BP 125/70
[2020-06-04 13:20] VITALS: Ht 162.6 cm; Wt 45.4 kg
[2020-06-04 18:57] VITALS: BP 104/58
[2020-06-04 20:00] VITALS: BP 128/73
[2020-06-04 23:43] LABS: BILIRUBIN NEGATIVE (NEGATIVE); KETONE NEGATIVE (NEGATIVE); NITRITE NEGATIVE (NEGATIVE); UROBILINOGEN NORMAL mg/dL (< 2)
--- NOTE | 2020-06-05 03:29 | NUR ---
I have reviewed this patient and I concur with the Shift Assessment completed by the Licensed Practical Nurse today this shift.
[2020-06-05 04:00] VITALS: BP 122/63
[2020-06-05 08:44] VITALS: BP 117/69
--- NOTE | 2020-06-05 09:56 | MORECARE ---
CASE MANAGEMENT DISCHARGE SUMMARY PATIENT: MICHAEL SINGH UNIT: [id number] ADM DATE: 06/01/20 AGE: 65 : 57 SEX: F ROOM/BED: D.2210 AUTHOR: LADAN,DOC PHYSICIAN: REFERRING PHYSICIAN: MANUEL OLIVO MD DATE OF SERVICE: 06/05/20 Discharge Plan Patient Name: MICHAEL SINGH Facility: [facility]:[place] : 1955 Planned Disposition: Home with Home Health Anticipated Discharge Date: Discharge Date: Expected LOS: Initial Reviewer: [email or web address] Initial Review Date: 06/01/2020 Generated: 06/05/20 10:55 am Comments DCP- Discharge Planning Updated by [email or web address]: Jolie Fung on 06/05/20 8:[address] Patient Name: MICHAEL SINGH Admission Status: ER Accout number: [id number] Admission Date: 06-01-2020 : 1955 Admission Diagnosis:UNSP FRACTURE OF SACRUM, INIT ENCNTR FOR CLOSED FRACTUR Attending: AMADOR Current LOS: 4 Anticipated DC Date: Planned Disposition: Home with Home Health Primary Insurance: [employer] Discharge Planning Comments: CM met with patient to complete initial dc planning assessment. CM educated patient on the CM role and verbal consent given by patient to complete assessment. Patient lives at home with her son and her friend where she states she is partially dependent with her care. At discharge patient plans to return home and feels this is a safe discharge. CM discussed availability of home health, rehab services, and medical equipment. She said that she is current with [facility]. She uses a walker at home and has rails to get in her home. Andree will be her explosives truck driver home. IMM served and HERO also obtained and signed. Patient denied known discharge needs at this time. CM will continue to follow and will assist as needed with dc plans/needs. Airborne Electronics Analyst: Jolie Fung DCPIA - Discharge Planning Initial Assessment Updated by [email or web address]: Jolie Fung on 06/05/20 9:50 am * Is the patient Alert and Oriented? Yes * How many steps to enter\exit or inside your home? STEPS/RAIL * PCP [facility] * Pharmacy [facility] * Preadmission Environment Home with Family * ADLs Independent * Equipment Walker * List name and contact numbers for known caregivers / representatives who currently or will assist patient after discharge: VAUGHN MONTELONGO [phone] * Verbal permission to speak to the caregivers and representatives has been obtained from the patient. N/A * Community resources currently utilized Home Health * Please name any agencies selected above. CURRENT WITH [facility] * Additional services required to return to the preadmission environment? No * Can the patient safely return to the preadmission environment? Yes * Has this patient been hospitalized within the prior 30 days at any hospital? Yes Coverage Notice Reviewer: [id number] Ashley Fung Notice Issued Date-Time: 06/05/2020 9:40 Notice Type: Patient Choice Letter Notice Delivered To: Patient Relationship to Patient: Mini Bar Attendant Name: Delivery Method: HAND - Hand Delivered Huyen Days: Prior Verbal Notification: Recipient Understood Notice: Yes Recipient Signature: Yes Med Rec Note Co-signed by Attending: Coverage Notice Comment: hero with [facility] she is current Reviewer: [id number] Ashley Fung Notice Issued Date-Time: 06/05/2020 9:40 Notice Type: IM Discharge Notice Notice Delivered To: Patient Relationship to Patient: Mini Bar Attendant Name: Delivery Method: HAND - Hand Delivered Huyen Days: Prior Verbal Notification: Recipient Understood Notice: Yes Recipient Signature: Yes Med Rec Note Co-signed by Attending: Coverage Notice Comment: Patient Name: MICHAEL SINGH Page [id number] at 0956 All edits/amendments must be made on the electronic document DICTATION DATE: 06/05/20954 BOWLING ALLEY MECHANIC: DANIELLE 06/05/20954 RPT#: [id number] DC DATE: STATUS: ADM IN [facility] [address] [place] [address] END OF REPORT
[2020-06-05 12:30] VITALS: BP 121/59
[2020-06-05 17:24] VITALS: BP 131/76
--- NOTE | 2020-06-05 19:45 | NUR ---
A&O, SUPINE IN BED. REPORTED 2 INSTANCES OF INCONTINENCE EALIER ON IN THE DAY DUE TO URGENCY, SOILING HER LINENS. PT WORRIED IT MIGHT HAPPEN TONIGHT. PT GIVEN EXTRA PADS FOR BRIEF AND COMMODE PLACED AT BEDSIDE, CTM.
[2020-06-05 20:00] VITALS: BP 106/69
--- NOTE | 2020-06-06 00:09 | NUR ---
I have reviewed this patient and I concur with the Shift Assessment completed by the Licensed Practical Nurse today this shift.
[2020-06-06 04:00] VITALS: BP 126/76
[2020-06-06 06:23] LABS: BASOPHILS 0.3 % (0-2); EOSINOPHILS 3.5 % (0-7); HEMATOCRIT 29.6 % (36.0-48.0); HEMOGLOBIN 9.2 g/dL (12-16); IMMATURE GRANULOCYTES 0.2 % (0-5); LYMPHOCYTE ABS# 1.92 10x3/uL (1.18-3.74); LYMPHOCYTES 29.1 % (15-50); MCH 30.4 pg (26.0-34.0); MCHC 31.1 g/dL (31.0-37.0); MCV 97.7 fL (80.0-100.0); MEAN PLATELET VOLUME 9.3 fL (7.4-10.4); MONOCYTES 12.9 % (2-11); NEUTROPHIL ABS# 3.57 10x3/uL (1.56-6.13); PLATELET COUNT 310 10x3/uL (130-400); RBC 3.03 10x6/uL (4.00-5.40); RDW 13.4 % (11.5-14.5); WBC 6.6 10x3/uL (4.8-10.8)
[2020-06-06 06:45] LABS: ALBUMIN 3.2 g/dL (3.4-5.0); ANION GAP 11.3 mmol/L (8-16); BILIRUBIN - TOTAL 0.19 mg/dL (0.2-1.3); CALCIUM 9.1 mg/dL (8.5-10.1); CARBON DIOXIDE 28.5 mmol/L (21.0-32.0); CREATININE - SERUM 0.9 mg/dL (0.6-1.3); POTASSIUM - SERUM 3.8 mmol/L (3.5-5.1); PROTEIN - SERUM 7.3 g/dL (6.4-8.2)
[2020-06-06 08:31] VITALS: BP 128/76
[2020-06-06 12:12] VITALS: BP 117/65
[2020-06-06 16:05] VITALS: BP 127/63
[2020-06-06 20:00] VITALS: BP 97/73
[2020-06-07 04:00] VITALS: BP 106/67
--- NOTE | 2020-06-07 07:20 | NUR ---
REC'D IN BED RESTING WITH EYES CLOSED EASILY TO AROUSED WHEN NAME IS CALLED. RESP EVEN AND UNLABORED WITH NO DISTRESS NOTED. CAN EXPRESS NEEDS AND WANTS. NO C/O NOTED OR VOICED. ASSESSMENT COMPLETED. C/L IN REACH AT BEDSIDE.
[2020-06-07 08:33] VITALS: BP 111/67
--- NOTE | 2020-06-07 11:30 | NUR ---
WAS MEDICATED WITH OXY IR PER ORDERS FOR C/O PAIN. C/L IN REACH AT BEDSIDE.
--- NOTE | 2020-06-07 13:32 | NUR ---
Nutrition follow-up: Pt receiving a low sodium diet PO intake ~50% of meals Labs reviewed Wt: 100# PO intake remains poor to fair at this time Recommendations: Pt may benefit from an appetite stimulant May also consider changing diet order to regular as tolerated Will continue to provide food choices and honor food preferences Will offer nutritional supplements. RDN follow-up: 06/11/20
[2020-06-07 14:00] VITALS: BP 111/60
[2020-06-07 17:07] VITALS: BP 133/88
--- NOTE | 2020-06-07 17:20 | NUR ---
I have reviewed this patient and I concur with the Shift Assessment completed by the Licensed Practical Nurse today this shift.
[2020-06-07 20:21] VITALS: BP 132/80
[2020-06-08 00:22] VITALS: BP 125/76
[2020-06-08 08:10] VITALS: BP 139/83
--- NOTE | 2020-06-08 09:24 | NUR ---
ALERT AND ORIENTED. ASSESSMENT COMPLETE. DENIES NEEDS. BED LOW. CALL GUILLEN AND PERSONAL ITEMS IN REACH. WILL CONTINUE TO MONITOR.
[2020-06-08 11:59] VITALS: BP 128/79
--- NOTE | 2020-06-08 13:18 | NUR ---
PT UPRIGHT IN BED EATING LUNCH UPON ENTERING. PROVIDED WITH REQUESTED DEPENDS. AAOX4. DENIES ANY NEEDS AT THIS TIME. WILL CONTINUE POC.
[2020-06-08 17:21] VITALS: BP 95/65
--- NOTE | 2020-06-08 17:45 | NUR ---
PRN OXY FOR 10/10 GENERALIZED PAIN. SITING UP RIGHT IN BED. DENIES ANY NEEDS AT THIS TIME. WILL CONTINUE POC.
[2020-06-08 21:51] VITALS: BP 120/64
[2020-06-09 01:18] VITALS: BP 130/82
[2020-06-09 05:56] VITALS: BP 123/72
--- NOTE | 2020-06-09 07:49 | NUR ---
PT IN BED WITH EYES CLOSED UPON ENTERING, AROUSES TO VOICE. DENIES ANY NEEDS AT THIS TIME. BED IN LOWEST POSITION, BED RAILS X2, CALL LIGHT WITHIN REACH. WILL CONTINUE POC.
--- NOTE | 2020-06-09 08:34 | NUR ---
AAOX4, ADMINISTERED MORNING MEDICATION, NO DIFFICULTIES. PRN OXY FOR 9/10 PAIN. DENIES ANY OTHER NEEDS AT THIS TIME. WILL CONTINUE POC.
[2020-06-09 08:39] VITALS: BP 134/92
--- NOTE | 2020-06-09 09:08 | MORECARE ---
CASE MANAGEMENT DISCHARGE SUMMARY PATIENT: MICHAEL SINGH UNIT: [id number] ADM DATE: 06/01/20 AGE: 65 : 57 SEX: F ROOM/BED: D.2210 AUTHOR: LADAN,DOC PHYSICIAN: REFERRING PHYSICIAN: MANUEL OLIVO MD DATE OF SERVICE: 06/09/20 Discharge Plan Patient Name: MICHAEL SINGH Facility: [facility]:[place] : 1955 Planned Disposition: Home with Home Health Anticipated Discharge Date: Discharge Date: Expected LOS: Initial Reviewer: [id number] Initial Review Date: 06/01/2020 Generated: 06/09/20 10:08 am Comments DCP- Discharge Planning Updated by [email or web address]: Anish Gupta on 06/09/20 8:[address] Patient Name: MICHAEL SINGH Encounter No: [id number] : 1955 Primary Insurance: NOVASYKismetCR Anticipated DC Date: Planned Disposition: Home with Home Health External Planned Provider: : DCP follow-up note: Patient in agreement with discharge plan. No changes to plan. Clinicals faxed to [facility]. Patient voiced no other needs at this time and is satisfied with DC plan. DC IMM delivered, explained, signed by the patient, and placed in chart. Signed form also left with the patient. CM will continue to follow and will assist as needed with dc plans/needs. Anish Gupta DCP- Discharge Planning Updated by [id number]: Jolie Fung on 06/05/20 8:[address] Patient Name: MICHAEL SINGH Admission Status: ER Accout number: [id number] Admission Date: 06-01-2020 : 1955 Admission Diagnosis:UNSP FRACTURE OF SACRUM, INIT ENCNTR FOR CLOSED FRACTUR Attending: AMADOR Current LOS: 4 Anticipated DC Date: Planned Disposition: Home with Home Health Primary Insurance: N[employer]YKismetCR Discharge Planning Comments: CM met with patient to complete initial dc planning assessment. CM educated patient on the CM role and verbal consent given by patient to complete assessment. Patient lives at home with her son and her friend where she states she is partially dependent with her care. At discharge patient plans to return home and feels this is a safe discharge. CM discussed availability of home health, rehab services, and medical equipment. She said that she is current with [facility] . She uses a walker at home and has rails to get in her home. Andree will be her patient transportation driver home. IMM served and HERO also obtained and signed. Patient denied known discharge needs at this time. CM will continue to follow and will assist as needed with dc plans/needs. Physician Office Assistant: Jolie Fung DCPIA - Discharge Planning Initial Assessment Updated by [id number]: Jolie Fung on 06/05/20 9:50 am * Is the patient Alert and Oriented? Yes * How many steps to enter\exit or inside your home? STEPS/RAIL * PCP [facility] * Pharmacy [facility] * Preadmission Environment Home with Family * ADLs Independent * Equipment Walker * List name and contact numbers for known caregivers / representatives who currently or will assist patient after discharge: VAUGHNMartín MONTELONGO [phone] * Verbal permission to speak to the caregivers and representatives has been obtained from the patient. N/A * Community resources currently utilized Home Health * Please name any agencies selected above. CURRENT WITH [facility] * Additional services required to return to the preadmission environment? No * Can the patient safely return to the preadmission environment? Yes * Has this patient been hospitalized within the prior 30 days at any hospital? Yes External Providers External Provider[email or web address] Next Contact Date: Service Request Date: Service Type: Resolution: Reviewer: Comments: Coverage Notice Reviewer: [id number] Ashley Fung Notice Issued Date-Time: 06/05/2020 9:40 Notice Type: Patient Choice Letter Notice Delivered To: Patient Relationship to Patient: Truck Mechanic Name: Delivery Method: HAND - Hand Delivered Huyen Days: Prior Verbal Notification: Recipient Understood Notice: Yes Recipient Signature: Yes Med Rec Note Co-signed by Attending: Coverage Notice Comment: [facility] with [facility] she is current Reviewer: [id number] Ashley Fung Notice Issued Date-Time: 06/05/2020 9:40 Notice Type: IM Discharge Notice Notice Delivered To: Patient Relationship to Patient: Truck Mechanic Name: Delivery Method: HAND - Hand Delivered Huyen Days: Prior Verbal Notification: Recipient Understood Notice: Yes Recipient Signature: Yes Med Rec Note Co-signed by Attending: Coverage Notice Comment: Reviewer: [id number] Ashley Gupta Notice Issued Date-Time: 06/09/2020 8:55 Notice Type: IM Discharge Notice Notice Delivered To: Patient Relationship to Patient: Self Truck Mechanic Name: Delivery Method: HAND - Hand Delivered Huyen Days: Prior Verbal Notification: Recipient Understood Notice: Yes Recipient Signature: Yes Med Rec Note Co-signed by Attending: Coverage Notice Comment: DC IMM delivered, explained, signed by the patient, and placed in chart. Signed form also left with the patient. Last DP export: 06/05/20 8:56 a Patient Name: MICHAEL SINGH Page [id number] at 0908 All edits/amendments must be made on the electronic document DICTATION DATE: 06/09/20907 GOLF BALL MOLDER: DANIELLE 06/09/20907 RPT#: [id number] DC DATE: STATUS: ADM IN [facility] [address] [place] [address] END OF REPORT
--- NOTE | 2020-06-09 09:30 | NUR ---
PT SIGNED ALL NECESSARY DISCHARGE PAPERWORK. REMOVED IV FROM LEFT FOREARM. CATHETER TIP INTACT, COVERD WITH GAUZE AND TAPE. TOLERATED WELL.
--- NOTE | 2020-06-09 10:20 | NUR ---
PT ESCORTED OUT VIA WHEELCHAIR BY AIDE. DISCHARGE HOME WITH FAMILY.
--- NOTE | 2020-06-09 10:23 | NUR ---
PATIENT WITHOUT DISTRESS.PATIENT WITHOUT NEEDS.WILL DC HOME
--- NOTE | 2020-06-10 07:32 | MORECARE ---
CASE MANAGEMENT DISCHARGE SUMMARY PATIENT: MICHAEL SINGH UNIT: [id number] ADM DATE: 06/01/20 AGE: 65 : 57 SEX: F ROOM/BED: D.2210 AUTHOR: LADAN,DOC PHYSICIAN: REFERRING PHYSICIAN: MANUEL OLIVO MD DATE OF SERVICE: 06/10/20 Discharge Plan Patient Name: MICHAEL SINGH Facility: [facility]:[place] : 1955 Planned Disposition: Home with Home Health Anticipated Discharge Date: Discharge Date: 06/09/2020 Expected LOS: Initial Reviewer: [email or web address] Initial Review Date: 06/01/2020 Generated: 06/10/20 8:31 am Comments DCP- Discharge Planning Updated by [id number]: Anish Gupta on 06/09/20 8:[address] Patient Name: MICHAEL SINGH Encounter No: [id number] : 1955 Primary Insurance: NOVASYMangatarCR Anticipated DC Date: Planned Disposition: Home with Home Health External Planned Provider: : DCP follow-up note: Patient in agreement with discharge plan. No changes to plan. Clinicals faxed to [facility]. Patient voiced no other needs at this time and is satisfied with DC plan. DC IMM delivered, explained, signed by the patient, and placed in chart. Signed form also left with the patient. CM will continue to follow and will assist as needed with dc plans/needs. Anish Gupta DCP- Discharge Planning Updated by [email or web address]: Jolie Fung on 06/05/20 8:[address] Patient Name: MICHAEL SINGH Admission Status: ER Accout number: [id number] Admission Date: 06-01-2020 : 1955 Admission Diagnosis:UNSP FRACTURE OF SACRUM, INIT ENCNTR FOR CLOSED FRACTUR Attending: AMADOR Current LOS: 4 Anticipated DC Date: Planned Disposition: Home with Home Health Primary Insurance: NOVASYMangatarCR Discharge Planning Comments: CM met with patient to complete initial dc planning assessment. CM educated patient on the CM role and verbal consent given by patient to complete assessment. Patient lives at home with her son and her friend where she states she is partially dependent with her care. At discharge patient plans to return home and feels this is a safe discharge. CM discussed availability of home health, rehab services, and medical equipment. She said that she is current with [facility]. She uses a walker at home and has rails to get in her home. Andree will be her otr company truck driver home. IMM served and HERO also obtained and signed. Patient denied known discharge needs at this time. CM will continue to follow and will assist as needed with dc plans/needs. Chemical Pumper: Jolie Fung DCPIA - Discharge Planning Initial Assessment Updated by [email or web address]: Jolie Fung on 06/05/20 9:50 am * Is the patient Alert and Oriented? Yes * How many steps to enter\exit or inside your home? STEPS/RAIL * PCP [facility] * Pharmacy [facility] * Preadmission Environment Home with Family * ADLs Independent * Equipment Walker * List name and contact numbers for known caregivers / representatives who currently or will assist patient after discharge: VAUGHN MONTELONGO [phone] * Verbal permission to speak to the caregivers and representatives has been obtained from the patient. N/A * Community resources currently utilized Home Health * Please name any agencies selected above. CURRENT WITH [facility] * Additional services required to return to the preadmission environment? No * Can the patient safely return to the preadmission environment? Yes * Has this patient been hospitalized within the prior 30 days at any hospital? Yes Coverage Notice Reviewer: [id number] Ashley Fung Notice Issued Date-Time: 06/05/2020 9:40 Notice Type: Patient Choice Letter Notice Delivered To: Patient Relationship to Patient: Caretaker Name: Delivery Method: HAND - Hand Delivered Huyen Days: Prior Verbal Notification: Recipient Understood Notice: Yes Recipient Signature: Yes Med Rec Note Co-signed by Attending: Coverage Notice Comment: hero with [facility] she is current Reviewer: [id number] Ashley Fung Notice Issued Date-Time: 06/05/2020 9:40 Notice Type: IM Discharge Notice Notice Delivered To: Patient Relationship to Patient: Caretaker Name: Delivery Method: HAND - Hand Delivered Huyen Days: Prior Verbal Notification: Recipient Understood Notice: Yes Recipient Signature: Yes Med Rec Note Co-signed by Attending: Coverage Notice Comment: Reviewer: [id number] Ashley Gupta Notice Issued Date-Time: 06/09/2020 8:55 Notice Type: IM Discharge Notice Notice Delivered To: Patient Relationship to Patient: Self Caretaker Name: Delivery Method: HAND - Hand Delivered Huyen Days: Prior Verbal Notification: Recipient Understood Notice: Yes Recipient Signature: Yes Med Rec Note Co-signed by Attending: Coverage Notice Comment: DC IMM delivered, explained, signed by the patient, and placed in chart. Signed form also left with the patient. Last DP export: 06/09/20 8:08 a Patient Name: MICHAEL SINGH Page [phone] at 0732 All edits/amendments must be made on the electronic document DICTATION DATE: 06/10/20730 BISCUITWARE BRUSHER: DANIELLE 06/10/20730 RPT#: [id number] DC DATE:06/09/20 STATUS: DIS IN [facility] [address] [place] [address] END OF REPORT
== END 2020-06-09 10:29 | disposition home health service (06) | DRG 552 ==
LOC: D.ER 13:33 → D.EDHOLD 17:16 → D.MS 17:16
PROVIDERS: Family Medicine; Legal Medicine; ADMIT Emergency Medicine; ATTEND Emergency Medicine
DX: S32.19XA Other fracture of sacrum, initial encounter for closed fracture (principal); X58.XXXA Exposure to other specified factors, initial encounter; K21.9 Gastro-esophageal reflux disease without esophagitis; J44.9 Chronic obstructive pulmonary disease, unspecified; D64.9 Anemia, unspecified; I10 Essential (primary) hypertension; I25.10 Atherosclerotic heart disease of native coronary artery without angina pectoris; S32.502D Unspecified fracture of left pubis, subsequent encounter for fracture with routine healing; W19.XXXD Unspecified fall, subsequent encounter; R32 Unspecified urinary incontinence; K59.00 Constipation, unspecified

== ENCOUNTER 2020-07-11 13:12 | Emergency (ER) | payer OTHER ==
[~2020-07-11] VITALS: Ht 162.6 cm; Wt 50.0 kg
[2020-07-11 13:15] VITALS: BP 147/87; Ht 162.6 cm; Wt 50.0 kg
[2020-07-11 14:03] LABS: ANION GAP 19.8 mmol/L (8-16); CARBON DIOXIDE 22.7 mmol/L (21.0-32.0); POTASSIUM - SERUM 3.5 mmol/L (3.5-5.1)
[2020-07-11 14:04] LABS: BILIRUBIN NEGATIVE (NEGATIVE); KETONE NEGATIVE (NEGATIVE); NITRITE NEGATIVE (NEGATIVE); UROBILINOGEN NORMAL mg/dL (< 2)
[2020-07-11 14:09] LABS: BILIRUBIN - TOTAL 0.47 mg/dL (0.2-1.3); PROTEIN - SERUM 8.5 g/dL (6.4-8.2)
[2020-07-11 14:27] LABS: EOSINOPHILS 2.8 % (0-7); HEMATOCRIT 41.7 % (36.0-48.0); HEMOGLOBIN 13.6 g/dL (12-16); IMMATURE GRANULOCYTES 0.2 % (0-5); LYMPHOCYTE ABS# 3.17 10x3/uL (1.18-3.74); LYMPHOCYTES 64.3 % (15-50); MCH 29.5 pg (26.0-34.0); MCHC 32.6 g/dL (31.0-37.0); MCV 90.5 fL (80.0-100.0); MEAN PLATELET VOLUME 9.8 fL (7.4-10.4); MONOCYTES 5.1 % (2-11); NEUTROPHIL ABS# 1.31 10x3/uL (1.56-6.13); NEUTROPHILS 26.6 % (40-80); PLATELET COUNT 334 10x3/uL (130-400); RBC 4.61 10x6/uL (4.00-5.40); RDW 14.3 % (11.5-14.5); WBC 4.9 10x3/uL (4.8-10.8)
== END 2020-07-11 15:45 | disposition home or self-care (01) ==
LOC: D.ER 13:12
PROVIDERS: Emergency Medicine
DX: F10.129 Alcohol abuse with intoxication, unspecified (principal); Y90.9 Presence of alcohol in blood, level not specified; S00.12XA Contusion of left eyelid and periocular area, initial encounter; S00.03XA Contusion of scalp, initial encounter; I10 Essential (primary) hypertension; J44.9 Chronic obstructive pulmonary disease, unspecified; K21.9 Gastro-esophageal reflux disease without esophagitis; R51.9 Headache, unspecified

== ENCOUNTER 2020-08-24 12:15 | Emergency (ER) | payer OTHER ==
[~2020-08-24] VITALS: Ht 162.6 cm; Wt 47.7 kg
[2020-08-24 12:17] VITALS: Ht 162.6 cm; Wt 47.7 kg
[2020-08-24 12:44] LABS: BASOPHILS 0.3 % (0-2); EOSINOPHILS 0.2 % (0-7); HEMATOCRIT 38.2 % (36.0-48.0); HEMOGLOBIN 12.5 g/dL (12-16); LYMPHOCYTE ABS# 0.85 10x3/uL (1.18-3.74); LYMPHOCYTES 14.2 % (15-50); MCH 29.8 pg (26.0-34.0); MCHC 32.7 g/dL (31.0-37.0); MCV 91.2 fL (80.0-100.0); MEAN PLATELET VOLUME 9.9 fL (7.4-10.4); MONOCYTES 7.5 % (2-11); NEUTROPHIL ABS# 4.66 10x3/uL (1.56-6.13); NEUTROPHILS 77.8 % (40-80); RBC 4.19 10x6/uL (4.00-5.40); RDW 14.1 % (11.5-14.5)
[2020-08-24 12:45] LABS: PLATELET COUNT 152 10x3/uL (130-400)
[2020-08-24 12:58] LABS: ANION GAP 12.1 mmol/L (8-16); CALCIUM 9.3 mg/dL (8.5-10.1); CARBON DIOXIDE 30.3 mmol/L (21.0-32.0); CREATININE - SERUM 1.3 mg/dL (0.6-1.3); POTASSIUM - SERUM 3.4 mmol/L (3.5-5.1)
[2020-08-24 13:05] LABS: ALBUMIN 3.9 g/dL (3.4-5.0); BILIRUBIN - TOTAL 0.49 mg/dL (0.2-1.3); MAGNESIUM - SERUM 2.3 mg/dL (1.8-2.4); PROTEIN - SERUM 7.9 g/dL (6.4-8.2)
[2020-08-24 13:29] LABS: UDS - AMPHET NEGATIVE QUAL (NEGATIVE); UDS - BARB NEGATIVE QUAL (NEGATIVE); UDS - BENZO NEGATIVE QUAL (NEGATIVE); UDS - COCAINE NEGATIVE QUAL (NEGATIVE); UDS - OPIATE POSITIVE QUAL (NEGATIVE); UDS - PCP NEGATIVE QUAL (NEGATIVE); UDS - THC NEGATIVE QUAL (NEGATIVE)
[2020-08-24 13:33] LABS: BILIRUBIN NEGATIVE (NEGATIVE); KETONE NEGATIVE (NEGATIVE); NITRITE NEGATIVE (NEGATIVE); UROBILINOGEN NORMAL mg/dL (< 2)
[2020-08-24 13:34] LABS: BACTERIA FEW HPF (NONE SEEN); SQUAMOUS EPITHELIAL 0-5 HPF (0-4); WHITE CELLS - URINE 2 HPF (0-4)
[2020-08-24 15:12] VITALS: BP 142/76
== END 2020-08-24 15:13 | disposition home or self-care (01) ==
LOC: D.ER 12:15
PROVIDERS: Family Medicine
DX: R44.1 Visual hallucinations (principal); T43.295A Adverse effect of other antidepressants, initial encounter; I10 Essential (primary) hypertension; J44.9 Chronic obstructive pulmonary disease, unspecified; K21.9 Gastro-esophageal reflux disease without esophagitis